=== PATIENT | female | born 1945 | race Two or more races ===

== ENCOUNTER 2016-08-09 02:40 | Inpatient (IN) | payer MEDICARE, OTHER ==
[~2016-08-09] VITALS: Ht 162.6 cm; Wt 65.3 kg
[2016-08-09 06:10] VITALS: BP 100/67
[2016-08-09] MEDS ORDERED: ENALAPRIL MALEAT5 MG ORAL (06:51)
[2016-08-09] MEDS ORDERED: FUROSEMIDE40 MG ORAL (06:51)
[2016-08-09] MEDS ORDERED: ASPIR 8181 MG ORAL (07:57)
[2016-08-09 08:00] VITALS: BP 113/63
[2016-08-09] MEDS: Aspirin Baby 81mg ORAL SCH (10:11)
[2016-08-09 10:57] LABS: BASOPHILS % (AUTO) 0.7 % (0.0-2.0); EOSINOPHILS % (AUTO) 1.5 % (0.0-3.0); LYMPHOCYTES % (AUTO) 24.1 % (20.0-45.0); MEAN CORPUSCULAR HEMOGLOBIN 29.3 PG (27.0-31.0); MEAN CORPUSCULAR HGB CONC 33.6 G/DL (32.0-36.0); MEAN CORPUSCULAR VOLUME 87 FL (80-99); MEAN PLATELET VOLUME 8.3 FL (6.5-10.1); MONOCYTES % (AUTO) 6.9 % (1.0-10.0); NEUTROPHILS % (AUTO) 66.8 % (45.0-75.0); PLATELET COUNT 191 K/UL (150-450); RED BLOOD COUNT 4.44 M/UL (4.20-5.40); RED CELL DISTRIBUTION WIDTH 11.9 % (11.6-14.8)
[2016-08-09 11:14] LABS: ALANINE AMINOTRANSFERASE 21 U/L (3-33); ALBUMIN/GLOBULIN RATIO 1.2 (1.0-2.7); ANION GAP 17 (5-15); ASPARTATE AMINO TRANSFERASE 31 U/L (5-40); CALCIUM 9.1 mg/dL (8.6-10.2); CARBON DIOXIDE 24 mEQ/L (20-30); CHLORIDE 97 mEQ/L (98-107); CHOLESTEROL 201 mg/dL (< 200); CHOLESTEROL/HDL RATIO 3.5 (3.3-4.4); CREATININE 0.8 mg/dL (0.5-0.9); GLOMERULAR FILTRATION RATE > 60 mL/min (>60); HEMOLYSIS 3; LDL CHOLESTEROL (CALC.) 126 mg/dL (60-99); MAGNESIUM 1.8 mg/dL (1.7-2.5); PHOSPHORUS 3.9 mg/dL (2.5-4.8); POTASSIUM 3.5 mEQ/L (3.4-4.9); SODIUM 138 mEQ/L (135-145); TOTAL PROTEIN 7.1 g/dL (6.6-8.7); TROPONIN I < 0.30 ng/mL (<=0.30)
--- NOTE | 2016-08-09 11:44 | History & Physical ---
History and Physical History & Physicial Dictated for Int Med-Dr Pond no. [id number]. ISABELLE DHILLON Aug 09, 2016 11:44
[2016-08-09 12:00] VITALS: BP 96/59
[2016-08-09] MEDS: Heparin 5000 units/ml inj SUBQ SCH ×2 (13:27→21:34)
--- NOTE | 2016-08-09 14:32 | Cardiac Electrophysiology PN ---
Subjective Subjective [id number]. CHF EF 20%, LBBB Objective Last 24 Hour Vital Signs Date Time Temp Pulse Resp B/P Pulse Ox O2 Delivery O2 Flow Rate FiO2 08/09/16 12:00 67 08/09/16 12:00 97.5 73 20 96/59 98 Room Air 08/09/16 08:00 67 08/09/16 08:00 97.7 68 20 113/63 99 Room Air 08/09/16 06:10 96.6 96 18 100/67 99 Room Air Laboratory Tests Test 08/09/16 10:46 White Blood Count 5.0 K/UL (4.8-10.8) Red Blood Count 4.44 M/UL (4.20-5.40) Hemoglobin 13.0 G/DL (12.0-16.0) Hematocrit 38.6 % (37.0-47.0) Mean Corpuscular Volume 87 FL (80-99) Mean Corpuscular Hemoglobin 29.3 PG (27.0-31.0) Mean Corpuscular Hemoglobin Concent 33.6 G/DL (32.0-36.0) Red Cell Distribution Width 11.9 % (11.6-14.8) Platelet Count 191 K/UL (150-450) Mean Platelet Volume 8.3 FL (6.5-10.1) Neutrophils (%) (Auto) 66.8 % (45.0-75.0) Lymphocytes (%) (Auto) 24.1 % (20.0-45.0) Monocytes (%) (Auto) 6.9 % (1.0-10.0) Eosinophils (%) (Auto) 1.5 % (0.0-3.0) Basophils (%) (Auto) 0.7 % (0.0-2.0) Sodium Level 138 mEQ/L (135-145) Potassium Level 3.5 mEQ/L (3.4-4.9) Chloride Level 97 mEQ/L (98-107) L Carbon Dioxide Level 24 mEQ/L (20-30) Anion Gap 17 (5-15) H Blood Urea Nitrogen 12 mg/dL (7-23) Creatinine 0.8 mg/dL (0.5-0.9) Estimat Glomerular Filtration Rate > 60 mL/min (>60) Glucose Level 195 mg/dL (74-106) H Calcium Level 9.1 mg/dL (8.6-10.2) Phosphorus Level 3.9 mg/dL (2.5-4.8) Magnesium Level 1.8 mg/dL (1.7-2.5) Total Bilirubin 0.7 mg/dL (0.0-1.2) Aspartate Amino Transf (AST/SGOT) 31 U/L (5-40) Alanine Aminotransferase (ALT/SGPT) 21 U/L (3-33) Alkaline Phosphatase 86 U/L (35-104) Troponin I < 0.30 ng/mL (<=0.30) Pro-B-Type Natriuretic Peptide 7043 pg/mL (0-125) H Total Protein 7.1 g/dL (6.6-8.7) Albumin 4.0 g/dL (3.5-5.2) Globulin 3.1 g/dL Albumin/Globulin Ratio 1.2 (1.0-2.7) Triglycerides Level 87 mg/dL (< 150) Cholesterol Level 201 mg/dL (< 200) H LDL Cholesterol 126 mg/dL (60-99) H HDL Cholesterol 58 mg/dL (> 60) Cholesterol/HDL Ratio 3.5 (3.3-4.4) JOSE ALFREDO PERDOMO Aug 09, 2016 14:32
--- NOTE | 2016-08-09 15:30 | Consultation ---
History of Present Illness General Date patient seen: Aug 09, 2016 Referring physician: Dr. Pond Reason for Consultation: dyspnea Present Illness HPI 70 year old female with hx of CHF, EF of 23%, was taken to [facility] with CC of Shortness of breath and cough, she was diagnosed to have acute exacerbation of CHF, treated with lasix and transferred to [place] for further work up. she is sitting up now, in no distress. The daughter is at the bed site helping with taking history. Allergies: Coded Allergies: No Known Allergies (Unverified , 08/09/16) Medication History Scheduled Aspirin* (Aspir 81*), 81 MG ORAL DAILY, (Reported) Enalapril Maleate* (Enalapril Maleate*), 5 MG ORAL DAILY, (Reported) Furosemide* (Lasix*), 40 MG ORAL TWICE A DAY, (Reported) Patient History Healthcare decision maker pt alert and oriented Resuscitation status Advanced Directive on File Past Medical/Surgical History Past Medical/Surgical History: (1) Cardiomyopathy Review of Systems All Other Systems: negative except mentioned in HPI Physical Exam General Appearance: WD/WN Lines, tubes and drains: peripheral, central line HEENT: normocephalic, atraumatic Neck: non-tender, normal alignment Respiratory/Chest: chest wall non-tender, lungs clear Cardiovascular/Chest: normal peripheral pulses, normal rate Abdomen: normal bowel sounds, non tender Genitourinary/Rectal: normal genital exam Last 24 Hour Vital Signs Date Time Temp Pulse Resp B/P Pulse Ox O2 Delivery O2 Flow Rate FiO2 08/09/16 12:00 67 08/09/16 12:00 97.5 73 20 96/59 98 Room Air 08/09/16 08:00 67 08/09/16 08:00 97.7 68 20 113/63 99 Room Air 08/09/16 06:10 96.6 96 18 100/67 99 Room Air Laboratory Tests Test 08/09/16 10:46 White Blood Count 5.0 K/UL (4.8-10.8) Red Blood Count 4.44 M/UL (4.20-5.40) Hemoglobin 13.0 G/DL (12.0-16.0) Hematocrit 38.6 % (37.0-47.0) Mean Corpuscular Volume 87 FL (80-99) Mean Corpuscular Hemoglobin 29.3 PG (27.0-31.0) Mean Corpuscular Hemoglobin Concent 33.6 G/DL (32.0-36.0) Red Cell Distribution Width 11.9 % (11.6-14.8) Platelet Count 191 K/UL (150-450) Mean Platelet Volume 8.3 FL (6.5-10.1) Neutrophils (%) (Auto) 66.8 % (45.0-75.0) Lymphocytes (%) (Auto) 24.1 % (20.0-45.0) Monocytes (%) (Auto) 6.9 % (1.0-10.0) Eosinophils (%) (Auto) 1.5 % (0.0-3.0) Basophils (%) (Auto) 0.7 % (0.0-2.0) Sodium Level 138 mEQ/L (135-145) Potassium Level 3.5 mEQ/L (3.4-4.9) Chloride Level 97 mEQ/L (98-107) L Carbon Dioxide Level 24 mEQ/L (20-30) Anion Gap 17 (5-15) H Blood Urea Nitrogen 12 mg/dL (7-23) Creatinine 0.8 mg/dL (0.5-0.9) Estimat Glomerular Filtration Rate > 60 mL/min (>60) Glucose Level 195 mg/dL (74-106) H Calcium Level 9.1 mg/dL (8.6-10.2) Phosphorus Level 3.9 mg/dL (2.5-4.8) Magnesium Level 1.8 mg/dL (1.7-2.5) Total Bilirubin 0.7 mg/dL (0.0-1.2) Aspartate Amino Transf (AST/SGOT) 31 U/L (5-40) Alanine Aminotransferase (ALT/SGPT) 21 U/L (3-33) Alkaline Phosphatase 86 U/L (35-104) Troponin I < 0.30 ng/mL (<=0.30) Pro-B-Type Natriuretic Peptide 7043 pg/mL (0-125) H Total Protein 7.1 g/dL (6.6-8.7) Albumin 4.0 g/dL (3.5-5.2) Globulin 3.1 g/dL Albumin/Globulin Ratio 1.2 (1.0-2.7) Triglycerides Level 87 mg/dL (< 150) Cholesterol Level 201 mg/dL (< 200) H LDL Cholesterol 126 mg/dL (60-99) H HDL Cholesterol 58 mg/dL (> 60) Cholesterol/HDL Ratio 3.5 (3.3-4.4) Height (Feet): 5 Height (Inches): 4.00 Weight (Pounds): 139 Medications Current Medications Medications (Trade) Dose Ordered Sig/Roselia Route PRN Reason Start Time Stop Time Status Last Admin Dose Admin Aspirin (ASA) 81 mg DAILY ORAL 08/09/16 10:00 09/08/16 09:59 08/09/16 10:11 Carvedilol (Coreg) 3.125 mg EVERY 12 HOURS ORAL 08/09/16 21:00 09/08/16 20:59 Dextrose (Dextrose 50%) STAT PRN IV Hypoglycemia 08/09/16 09:45 09/08/16 09:44 Furosemide (Lasix) 40 mg BID IV 08/09/16 18:00 09/08/16 17:59 Heparin Sodium (Porcine) (Heparin 5000 units/ml) 5,000 units EVERY 8 HOURS SUBQ 08/09/16 14:00 09/08/16 13:59 08/09/16 13:27 Lisinopril (Zestril) 2.5 mg DAILY ORAL 08/10/16 09:00 09/09/16 08:59 Potassium Chloride (K-Dur) 40 meq TWICE A DAY ORAL 08/09/16 18:00 09/08/16 17:59 Spironolactone (Aldactone) 25 mg DAILY ORAL 08/10/16 09:00 09/09/16 08:59 Assessment/Plan Problem List: (1) CHF exacerbation ICD Codes: I50.9 - Heart failure, unspecified SNOMED: 77426926 (2) Cardiomyopathy ICD Codes: I42.9 - Cardiomyopathy, unspecified SNOMED: 54738966 Assessment/Plan check CXr echo diuretics respiratory treatment titrate fio2 to sat of 92% ELLI FUENTES Aug 09, 2016 15:30
[2016-08-09 16:00] VITALS: BP 129/83
--- NOTE | 2016-08-09 16:38 | History and Physical Report ---
DATE OF ADMISSION: 08/09/2016 CHIEF COMPLAINT: The patient is a 70-year-old female, who presents with complaint of fatigue and chest pain. HISTORY OF PRESENT ILLNESS: The patient states she was diagnosed with congestive heart failure in 04/2016 in [facility]. The patient states her ejection fraction is about 23%. The patient has not seen a family support worker since returning to the [facility]. The patient states she had cough since April. The patient was seen by her primary care physician. The patient was told she had bronchitis. The patient states that she has cough since April. The patient states that yesterday, 08/08/2016, she began to experience chest pain. Chest pain is left-sided. It does not radiate to the jaw or to the left shoulder. It does radiate to the back. The patient also states she was fatigued. The patient is unable to walk without feeling fatigued. The patient presented to [place]. The patient was found to have BNP elevated over 7000. The patient was transferred to [facility] for insurance purposes. The patient was admitted for congestive heart failure. REVIEW OF SYSTEMS: Constitutional: The patient denies weight loss or weight gain. The patient denies fever or chills. HEENT: The patient denies ear or throat pain. The patient denies headache. Cardiovascular: The patient complains of chest pain as above. The patient denies palpitations. Chest: The patient denies wheeze or shortness of breath. Abdominal: The patient denies nausea, vomiting, or constipation. Genitourinary: The patient denies dysuria or increased frequency of urination. Neuromuscular: The patient complains of generalized fatigue as above. The patient denies seizures. PAST MEDICAL HISTORY: Significant for congestive heart failure as above. PAST SURGICAL HISTORY: Significant for bilateral tubal ligation. CURRENT MEDICATIONS: 1. Enalapril 20 mg one-quarter tablet daily. 2. Aspirin 81 mg one tablet p.o. daily. 3. Lasix 40 mg one tablet p.o. twice daily. ALLERGIES: No known drug allergies. SOCIAL HISTORY: The patient is and her is at the bedside. The patient denies tobacco use. The patient admits to rare alcohol use. The patient is unemployed. PHYSICAL EXAMINATION: VITAL SIGNS: Temperature 96.6, respirations 18, pulse 96, blood pressure 100/67. GENERAL: The patient is a well-developed, well-nourished, female, in no apparent distress. HEENT: Eyes, pupils are equal and responsive to light and accommodation. Extraocular movements are intact. NECK: Supple. No lymphadenopathy. CHEST: Lungs are clear to auscultation bilaterally without wheezes or rales. CARDIOVASCULAR: Regular rhythm and rate. S1, S2. No murmurs, rubs, or gallops. ABDOMEN: Soft, nontender, and nondistended. Positive bowel sounds. No evidence of hepatosplenomegaly. Currently, no rebound or guarding. EXTREMITIES: No clubbing, cyanosis, or edema. RECTAL: Refused. GENITAL: Refused. NEUROLOGIC: Cranial nerves II through XII are grossly intact without focal deficits. Motor strength is 5/5 bilaterally. Deep tendon reflexes are 2+ plantar. LABORATORY STUDIES: WBC 5.2, hemoglobin 13.2, hematocrit 38.6, platelets 191,000. Sodium 138, potassium 3.5, chloride 97, CO2 24, BUN 12, creatinine 0.8, and glucose elevated at 195. Troponin less than 0.3. BNP 7043. Chest x-ray from [place] showed pulmonary vascular congestion consistent with congestive heart failure. An EKG from [place] showed left bundle-branch block, rate approximately 85 beats per minute with no acute ST changes or Q-waves noted. ASSESSMENT: This is a 70-year-old female with: 1. Shortness of breath. 2. Fatigue. 3. Congestive heart failure. TREATMENT: Shortness of breath/fatigue/congestive heart failure. An echocardiogram is pending. Cardiology consultation with Dr. Jv Melgar. The patient has been started empirically on intravenous Lasix. We will follow recommendation of Cardiology. Kevin Tuttle M.D. DR: Neva JOB#: [id number] CC:
--- NOTE | 2016-08-09 18:03 | Diagnostic Imaging Report ---
Indication: DYSPNEA Technique: One view of the chest Comparison: none Findings: Heart is enlarged. Lungs and pleural spaces are clear. Impression: Cardiomegaly. No acute process
--- NOTE | 2016-08-09 19:27 | Cardiology Report ---
APPROVED REPORT EXAM: Two-dimensional and M-mode echocardiogram with Doppler and color Doppler. INDICATION Left Ventricular Function M-Mode DIMENSIONS IVSd0.6 (0.7-1.1cm)Left Atrium (MM)5.4 (1.6-4.0cm) LVDd7.4 (3.5-5.6cm)Aortic Root1.8 (2.0-3.7cm) PWd0.7 (0.7-1.1cm)Aortic Cusp Exc.1.2 (1.5-2.0cm) LVDs6.7 (2.5-4.0cm) PWs1.7 cm Severe left ventricular enlargement. Severe global left ventricular hypokinesia. Left ventricular ejection fraction is estimated to be 10-15%. No evidence of ventricular hypertrophy. No evidence of pericardial fat or effusion. All other cardiac chamber sizes are within normal limits. Aortic valve calcification with decreased cusp excursion c/w aortic stenosis. Mildly thickened mitral valve leaflets with normal excursion. Mild mitral annulus and aortic root calcification. Pulmonic valve not well visualized. Normal tricuspid valve structure. IVC dilated at 2.1 cm with physiologic collapse. A color flow and spectral Doppler study was performed and revealed: Trace aortic regurgitation. Peak aortic valve gradient of 12 mmHg and a mean of 4 mmHg. Aortic valve area 1.3 cm2 calculated by continuity equation. Moderate mitral regurgitation. Mitral inflow velocities indicates restrictive LV physiology implying significant left ventricular diastolic dysfunction (Grade III). High E/E' ratio suggestive of increase in intracardiac filling pressure. Mild to moderate tricuspid regurgitation. Tricuspid systolic velocities suggests peak right ventricular systolic pressure of 44 mmHg, consistent with mild pulmonary hypertension. Mild pulmonic regurgitation present.
[2016-08-09 20:00] VITALS: BP 117/75
[2016-08-10] VITALS: BP 106/62
[2016-08-10 04:00] VITALS: BP 96/59
[2016-08-10] MEDS: Heparin 5000 units/ml inj SUBQ SCH ×3 (05:38→22:15)
[2016-08-10 08:07] VITALS: BP 105/67
--- NOTE | 2016-08-10 08:09 | Consultation ---
DATE OF CONSULTATION: 08/09/2016 CARDIOLOGY CONSULTATION: REFERRING PHYSICIAN: Zhen Pond M.D. REASON FOR CONSULTATION: Evaluation of the patient's congestive heart failure. HISTORY OF PRESENT ILLNESS: The patient is a 70-year-old lady who had no past medical history in the past, who was recently diagnosed with congestive heart failure, ejection fraction of only 23%. The patient presented with shortness of breath and productive cough about three weeks ago and was started on Lasix in April in her home country, [facility]. The patient presented to [facility] again with increasing shortness of breath. The patient had congestive heart failure with complete left bundle-branch block. The patient was transferred to [facility] as the patient was not a [place] member. The patient also had frequent PVCs. At the time of my evaluation, the patient is undergoing an echocardiogram. Denies any chest pain or shortness of breath. Her echocardiogram was on 06/22/2016 that showed EF of 23% from [facility]. PAST MEDICAL HISTORY: 1. Hypertension. 2. Severe cardiomyopathy with ejection fraction of 23% on echocardiogram. SOCIAL HISTORY: She is from [facility] and does not smoke or drink alcohol. FAMILY HISTORY: Noncontributory. REVIEW OF SYSTEMS: Performed and was negative other what was mentioned in history of present illness. PHYSICAL EXAMINATION: VITAL SIGNS: Blood pressure 96/59, pulse 72, respiration 20, and she is afebrile. HEAD AND NECK: Show positive JVD. LUNGS: Decreased breath sounds CARDIOVASCULAR: Shows regular S1 and S2 with S3 gallop. ABDOMEN: Soft. EXTREMITIES: A 1+ pitting edema. LABORATORY AND DIAGNOSTIC DATA: EKG shows sinus rhythm with complete left bundle-branch block. , hemoglobin 13, hematocrit 38.6, and platelet 191,000. Sodium 138, potassium 3.5, BUN 12, creatinine 0.8, and glucose of 194. Troponin is less than 0.3. BNP 7043. LDL is 126. ASSESSMENT AND PLAN: 1. Congestive heart failure. The previous echocardiogram, ejection fraction was 20%, she has been on heart failure since then. I would repeat the echocardiogram for confirmation. We will start the patient on low dose of Coreg, lisinopril, Aldactone, and Lasix. BNP of more than 7000. 2. Complete left bundle-branch block. 3. If patient's ejection fraction does not improve to more than 35%, therapy every three months. She would need biventricular defibrillator implantation especially in view of patient's underlying complete left bundle-branch block. Thank you very much, Dr. Pond, for allowing me to participate in the care of this patient. Please do not hesitate to contact for any questions regarding my evaluation. Jv Melgar M.D. DR: Chivo JOB#: [id number] CC:
[2016-08-10] MEDS: Aspirin Baby 81mg ORAL SCH (08:56)
[2016-08-10] MEDS: Spironolactone 25mg tab ORAL SCH (08:57)
[2016-08-10] MEDS ORDERED: Spironolactone 25mg tab ORAL SCH (09:00)
[2016-08-10] MEDS: Lisinopril 2.5mg tab ORAL SCH (09:00)
[2016-08-10] MEDS ORDERED: Lisinopril 2.5mg tab ORAL SCH (09:00)
[2016-08-10 09:23] LABS: EOSINOPHILS % (AUTO) 1.7 % (0.0-3.0); LYMPHOCYTES % (AUTO) 21.8 % (20.0-45.0); MEAN CORPUSCULAR HEMOGLOBIN 29.3 PG (27.0-31.0); MEAN CORPUSCULAR HGB CONC 33.3 G/DL (32.0-36.0); MEAN CORPUSCULAR VOLUME 88 FL (80-99); MEAN PLATELET VOLUME 6.8 FL (6.5-10.1); MONOCYTES % (AUTO) 6.8 % (1.0-10.0); NEUTROPHILS % (AUTO) 68.7 % (45.0-75.0); PLATELET COUNT 218 K/UL (150-450); RED BLOOD COUNT 4.53 M/UL (4.20-5.40); RED CELL DISTRIBUTION WIDTH 11.8 % (11.6-14.8); WHITE BLOOD COUNT 4.6 K/UL (4.8-10.8)
[2016-08-10 09:43] LABS: ANION GAP 16 (5-15); CALCIUM 9.4 mg/dL (8.6-10.2); CARBON DIOXIDE 26 mEQ/L (20-30); CHLORIDE 97 mEQ/L (98-107); CREATININE 0.9 mg/dL (0.5-0.9); GLOMERULAR FILTRATION RATE > 60 mL/min (>60); HEMOLYSIS 2; POTASSIUM 4.3 mEQ/L (3.4-4.9); SODIUM 139 mEQ/L (135-145)
[2016-08-10 09:56] LABS: TROPONIN I < 0.30 ng/mL (<=0.30)
[2016-08-10 12:09] VITALS: BP 93/58
--- NOTE | 2016-08-10 15:19 | Pulmonology Progress Note ---
Assessment/Plan Problems: (1) CHF exacerbation (2) Cardiomyopathy Assessment/Plan improving optimize cardiac meds f/u by shoaib as outpatient titrate fio2 to sat of 92%. watch intake/out Subjective ROS Limited/Unobtainable: No Interval Events: les short of breath Allergies: Coded Allergies: No Known Allergies (Unverified , 08/09/16) Objective Last 24 Hour Vital Signs Date Time Temp Pulse Resp B/P Pulse Ox O2 Delivery O2 Flow Rate FiO2 08/10/16 12:09 97.3 59 18 93/58 97 Room Air 08/10/16 12:00 57 08/10/16 09:00 105/67 08/10/16 08:58 61 105/67 08/10/16 08:07 97.7 61 18 105/67 98 Room Air 08/10/16 08:00 72 08/10/16 04:00 58 08/10/16 04:00 97.2 60 16 96/59 98 Room Air 08/10/16 00:00 97.0 65 20 106/62 97 Room Air 08/10/16 00:00 65 08/09/16 21:33 94 117/75 08/09/16 20:00 97.0 94 20 117/75 100 Room Air 08/09/16 20:00 90 08/09/16 16:00 78 08/09/16 16:00 96.8 72 20 129/83 98 Room Air Intake and Output 08/09/16 08/10/16 19:00 07:00 Intake Total 100 ml 150 ml Balance 100 ml 150 ml Intake Oral 100 ml 150 ml # Voids 2 2 General Appearance: WD/WN HEENT: normocephalic, atraumatic Respiratory/Chest: chest wall non-tender, lungs clear Breasts: no masses Cardiovascular: normal peripheral pulses Abdomen: normal bowel sounds, soft, non tender Extremities: no cyanosis Skin: no rash 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, no motor/sensory deficits Lymphatic: no neck adenopathy Laboratory Tests 08/10/16 08:35: White Blood Count 4.6L, Red Blood Count 4.53, Hemoglobin 13.2, Hematocrit 39.8, Mean Corpuscular Volume 88, Mean Corpuscular Hemoglobin 29.3, Mean Corpuscular Hemoglobin Concent 33.3, Red Cell Distribution Width 11.8, Platelet Count 218, Mean Platelet Volume 6.8, Neutrophils (%) (Auto) 68.7, Lymphocytes (%) (Auto) 21.8, Monocytes (%) (Auto) 6.8, Eosinophils (%) (Auto) 1.7, Basophils (%) (Auto ) 1.0, Sodium Level 139, Potassium Level 4.3, Chloride Level 97L, Carbon Dioxide Level 26, Anion Gap 16H, Blood Urea Nitrogen 17, Creatinine 0.9, Estimat Glomerular Filtration Rate > 60, Glucose Level 183H, Calcium Level 9.4, Troponin I < 0.30, Pro-B-Type Natriuretic Peptide 3140H Current Medications Medications (Trade) Dose Ordered Sig/Roselia Route PRN Reason Start Time Stop Time Status Last Admin Dose Admin Aspirin (ASA) 81 mg DAILY ORAL 08/09/16 10:00 09/08/16 09:59 08/10/16 08:56 Carvedilol (Coreg) 3.125 mg EVERY 12 HOURS ORAL 08/09/16 21:00 09/08/16 20:59 08/10/16 08:58 Dextrose (Dextrose 50%) STAT PRN IV Hypoglycemia 08/09/16 09:45 09/08/16 09:44 Furosemide (Lasix) 40 mg BID IV 08/09/16 18:00 09/08/16 17:59 08/10/16 08:57 Heparin Sodium (Porcine) (Heparin 5000 units/ml) 5,000 units EVERY 8 HOURS SUBQ 08/09/16 14:00 09/08/16 13:59 08/10/16 14:33 Lisinopril (Zestril) 2.5 mg DAILY ORAL 08/10/16 09:00 09/09/16 08:59 08/10/16 09:00 Potassium Chloride (K-Dur) 40 meq TWICE A DAY ORAL 08/09/16 18:00 09/08/16 17:59 08/10/16 08:58 Spironolactone (Aldactone) 25 mg DAILY ORAL 08/10/16 09:00 09/09/16 08:59 08/10/16 08:57 ELLI FUENTES Aug 10, 2016 15:19
--- NOTE | 2016-08-10 15:24 | Internal Med Progress Note ---
Subjective Date of Service: Aug 10, 2016 Physician Name Kevin Dhillon Attending Physician Zhen Pond MD Current Medications Medications (Trade) Dose Ordered Sig/Roselia Route PRN Reason Start Time Stop Time Status Last Admin Dose Admin Aspirin (ASA) 81 mg DAILY ORAL 08/09/16 10:00 09/08/16 09:59 08/10/16 08:56 Carvedilol (Coreg) 3.125 mg EVERY 12 HOURS ORAL 08/09/16 21:00 09/08/16 20:59 08/10/16 08:58 Dextrose (Dextrose 50%) STAT PRN IV Hypoglycemia 08/09/16 09:45 09/08/16 09:44 Furosemide (Lasix) 40 mg BID IV 08/09/16 18:00 09/08/16 17:59 08/10/16 08:57 Heparin Sodium (Porcine) (Heparin 5000 units/ml) 5,000 units EVERY 8 HOURS SUBQ 08/09/16 14:00 09/08/16 13:59 08/10/16 14:33 Lisinopril (Zestril) 2.5 mg DAILY ORAL 08/10/16 09:00 09/09/16 08:59 08/10/16 09:00 Potassium Chloride (K-Dur) 40 meq TWICE A DAY ORAL 08/09/16 18:00 09/08/16 17:59 08/10/16 08:58 Spironolactone (Aldactone) 25 mg DAILY ORAL 08/10/16 09:00 09/09/16 08:59 08/10/16 08:57 Allergies: Coded Allergies: No Known Allergies (Unverified , 08/09/16) ROS Limited/Unobtainable: No Constitutional: Reports: no symptoms HEENT: Reports: no symptoms Cardiovascular: Reports: no symptoms Respiratory: Reports: shortness of breath Gastrointestinal/Abdominal: Reports: no symptoms Genitourinary: Reports: no symptoms Neurologic/Psychiatric: Reports: weakness Subjective 70 YO F admitted with shortness of breath. Now congestive heart failure. Cover for Int Med-Dr Pond. Objective Last Vital Signs Date Time Temp Pulse Resp B/P Pulse Ox O2 Delivery O2 Flow Rate FiO2 08/10/16 12:09 97.3 59 18 93/58 97 Room Air General Appearance: WD/WN, alert, mild distress EENT: PERRL/EOMI, normal ENT inspection, TMs normal Neck: non-tender, normal alignment, supple Cardiovascular: normal peripheral pulses, normal rate, regular rhythm, no gallop/murmur, no JVD Respiratory/Chest: chest wall non-tender, crackles/rales, rhonchi - bilaterally , expiratory wheezing Abdomen: normal bowel sounds, non tender, soft, no organomegaly, no mass Extremities: normal range of motion Neurologic: translator II-XII grossly normal Skin: normal pigmentation, warm/dry Laboratory Tests Test 08/10/16 08:35 White Blood Count 4.6 K/UL (4.8-10.8) L Red Blood Count 4.53 M/UL (4.20-5.40) Hemoglobin 13.2 G/DL (12.0-16.0) Hematocrit 39.8 % (37.0-47.0) Mean Corpuscular Volume 88 FL (80-99) Mean Corpuscular Hemoglobin 29.3 PG (27.0-31.0) Mean Corpuscular Hemoglobin Concent 33.3 G/DL (32.0-36.0) Red Cell Distribution Width 11.8 % (11.6-14.8) Platelet Count 218 K/UL (150-450) Mean Platelet Volume 6.8 FL (6.5-10.1) Neutrophils (%) (Auto) 68.7 % (45.0-75.0) Lymphocytes (%) (Auto) 21.8 % (20.0-45.0) Monocytes (%) (Auto) 6.8 % (1.0-10.0) Eosinophils (%) (Auto) 1.7 % (0.0-3.0) Basophils (%) (Auto) 1.0 % (0.0-2.0) Sodium Level 139 mEQ/L (135-145) Potassium Level 4.3 mEQ/L (3.4-4.9) Chloride Level 97 mEQ/L (98-107) L Carbon Dioxide Level 26 mEQ/L (20-30) Anion Gap 16 (5-15) H Blood Urea Nitrogen 17 mg/dL (7-23) Creatinine 0.9 mg/dL (0.5-0.9) Estimat Glomerular Filtration Rate > 60 mL/min (>60) Glucose Level 183 mg/dL (74-106) H Calcium Level 9.4 mg/dL (8.6-10.2) Troponin I < 0.30 ng/mL (<=0.30) Pro-B-Type Natriuretic Peptide 3140 pg/mL (0-125) H Intake and Output 08/09/16 08/10/16 19:00 07:00 Intake Total 100 ml 150 ml Balance 100 ml 150 ml Intake Oral 100 ml 150 ml # Voids 2 2 Assessment/Plan Problem List: (1) Congestive heart failure (CHF) Assessment & Plan: LVEF 10-15%. May require AICD. Follow cardiology recs. (2) Shortness of breath Assessment & Plan: Due to CHF. See cariology note. Cont IV lasix (3) Fatigue Assessment & Plan: Due to CHF Status: progressing KEVIN DHILLON Aug 10, 2016 15:24
--- NOTE | 2016-08-10 15:34 | Cardiac Electrophysiology PN ---
Assessment/Plan Status Narrative Severe left ventricular enlargement. Severe global left ventricular hypokinesia. Left ventricular ejection fraction is estimated to be 10-15%. No evidence of ventricular hypertrophy. No evidence of pericardial fat or effusion. All other cardiac chamber sizes are within normal limits. Aortic valve calcification with decreased cusp excursion c/w aortic stenosis. Mildly thickened mitral valve leaflets with normal excursion. Mild mitral annulus and aortic root calcification. Pulmonic valve not well visualized. Normal tricuspid valve structure. IVC dilated at 2.1 cm with physiologic collapse. Assessment/Plan 1. Congestive heart failure. Ejection fraction was 20% last month and still 10- 15%.,Continue Coreg, lisinopril, Aldactone, and Lasix. BNP of more than 7000. Likely nonischemic cardiomyopathy.Will schedule for Life vest and nuclear stress test. Likely needs cardiac cath. If EF does not improve to more than 35% in 2 months, would need BIV ICD implant. 2. Complete left bundle-branch block. 3. Moderate MR DW Daughter and Dr Pond and RN Subjective Subjective Feeling better. No chest pain. SOB better. Objective Last 24 Hour Vital Signs Date Time Temp Pulse Resp B/P Pulse Ox O2 Delivery O2 Flow Rate FiO2 08/10/16 12:09 97.3 59 18 93/58 97 Room Air 08/10/16 12:00 57 08/10/16 09:00 105/67 08/10/16 08:58 61 105/67 08/10/16 08:07 97.7 61 18 105/67 98 Room Air 08/10/16 08:00 72 08/10/16 04:00 58 08/10/16 04:00 97.2 60 16 96/59 98 Room Air 08/10/16 00:00 97.0 65 20 106/62 97 Room Air 08/10/16 00:00 65 08/09/16 21:33 94 117/75 08/09/16 20:00 97.0 94 20 117/75 100 Room Air 08/09/16 20:00 90 08/09/16 16:00 78 08/09/16 16:00 96.8 72 20 129/83 98 Room Air Intake and Output 08/09/16 08/10/16 19:00 07:00 Intake Total 100 ml 150 ml Balance 100 ml 150 ml Intake Oral 100 ml 150 ml # Voids 2 2 Laboratory Tests Test 08/10/16 08:35 White Blood Count 4.6 K/UL (4.8-10.8) L Red Blood Count 4.53 M/UL (4.20-5.40) Hemoglobin 13.2 G/DL (12.0-16.0) Hematocrit 39.8 % (37.0-47.0) Mean Corpuscular Volume 88 FL (80-99) Mean Corpuscular Hemoglobin 29.3 PG (27.0-31.0) Mean Corpuscular Hemoglobin Concent 33.3 G/DL (32.0-36.0) Red Cell Distribution Width 11.8 % (11.6-14.8) Platelet Count 218 K/UL (150-450) Mean Platelet Volume 6.8 FL (6.5-10.1) Neutrophils (%) (Auto) 68.7 % (45.0-75.0) Lymphocytes (%) (Auto) 21.8 % (20.0-45.0) Monocytes (%) (Auto) 6.8 % (1.0-10.0) Eosinophils (%) (Auto) 1.7 % (0.0-3.0) Basophils (%) (Auto) 1.0 % (0.0-2.0) Sodium Level 139 mEQ/L (135-145) Potassium Level 4.3 mEQ/L (3.4-4.9) Chloride Level 97 mEQ/L (98-107) L Carbon Dioxide Level 26 mEQ/L (20-30) Anion Gap 16 (5-15) H Blood Urea Nitrogen 17 mg/dL (7-23) Creatinine 0.9 mg/dL (0.5-0.9) Estimat Glomerular Filtration Rate > 60 mL/min (>60) Glucose Level 183 mg/dL (74-106) H Calcium Level 9.4 mg/dL (8.6-10.2) Troponin I < 0.30 ng/mL (<=0.30) Pro-B-Type Natriuretic Peptide 3140 pg/mL (0-125) H Objective HEAD AND NECK: Show positive JVD. LUNGS: Decreased breath sounds CARDIOVASCULAR: Shows regular S1 and S2 with S3 gallop. ABDOMEN: Soft. EXTREMITIES: A 1+ pitting edema. JOSE ALFREDO PERDOMO Aug 10, 2016 15:34
[2016-08-10 16:00] VITALS: BP 80/40
[2016-08-10 20:00] VITALS: BP 91/55
[2016-08-11 00:19] VITALS: BP 103/69
[2016-08-11 04:25] VITALS: BP 100/54
[2016-08-11] MEDS: Heparin 5000 units/ml inj SUBQ SCH ×3 (06:10→21:04)
[2016-08-11 07:07] LABS: TROPONIN I < 0.30 ng/mL (<=0.30)
[2016-08-11 07:08] LABS: ANION GAP 13 (5-15); CALCIUM 9.4 mg/dL (8.6-10.2); CARBON DIOXIDE 25 mEQ/L (20-30); CHLORIDE 100 mEQ/L (98-107); CREATININE 0.9 mg/dL (0.5-0.9); GLOMERULAR FILTRATION RATE > 60 mL/min (>60); HEMOLYSIS 32; SODIUM 138 mEQ/L (135-145)
[2016-08-11 07:23] LABS: BASOPHILS % (AUTO) 1.2 % (0.0-2.0); EOSINOPHILS % (AUTO) 2.6 % (0.0-3.0); MEAN CORPUSCULAR HEMOGLOBIN 29.5 PG (27.0-31.0); MEAN CORPUSCULAR HGB CONC 33.5 G/DL (32.0-36.0); MEAN CORPUSCULAR VOLUME 88 FL (80-99); MEAN PLATELET VOLUME 6.8 FL (6.5-10.1); MONOCYTES % (AUTO) 9.6 % (1.0-10.0); NEUTROPHILS % (AUTO) 59.6 % (45.0-75.0); PLATELET COUNT 206 K/UL (150-450); RED BLOOD COUNT 4.65 M/UL (4.20-5.40); WHITE BLOOD COUNT 4.4 K/UL (4.8-10.8)
[2016-08-11 08:00] VITALS: BP 102/67
[2016-08-11] MEDS: Spironolactone 25mg tab ORAL SCH (09:00)
[2016-08-11] MEDS: Lisinopril 2.5mg tab ORAL SCH (09:00)
[2016-08-11] MEDS: Aspirin Baby 81mg ORAL SCH (09:17)
[2016-08-11] MEDS ORDERED: Adenosine Inj IVP ONE (11:15)
--- NOTE | 2016-08-11 11:48 | Internal Med Progress Note ---
Subjective Date of Service: Aug 11, 2016 Physician Name Isabelle Dhillon Attending Physician Zhen Pond MD Current Medications Medications (Trade) Dose Ordered Sig/Roselia Route PRN Reason Start Time Stop Time Status Last Admin Dose Admin Aspirin (ASA) 81 mg DAILY ORAL 08/09/16 10:00 09/08/16 09:59 08/11/16 09:17 Carvedilol (Coreg) 3.125 mg EVERY 12 HOURS ORAL 08/09/16 21:00 09/08/16 20:59 08/10/16 08:58 Dextrose (Dextrose 50%) STAT PRN IV Hypoglycemia 08/09/16 09:45 09/08/16 09:44 Furosemide (Lasix) 40 mg DAILY IV 08/11/16 09:00 09/10/16 08:59 Heparin Sodium (Porcine) (Heparin 5000 units/ml) 5,000 units EVERY 8 HOURS SUBQ 08/09/16 14:00 09/08/16 13:59 08/11/16 06:10 Lisinopril (Zestril) 2.5 mg DAILY ORAL 08/10/16 09:00 09/09/16 08:59 08/10/16 09:00 Potassium Chloride (K-Dur) 40 meq TWICE A DAY ORAL 08/09/16 18:00 09/08/16 17:59 08/10/16 17:17 Spironolactone (Aldactone) 25 mg DAILY ORAL 08/10/16 09:00 09/09/16 08:59 08/10/16 08:57 Allergies: Coded Allergies: No Known Allergies (Unverified , 08/09/16) ROS Limited/Unobtainable: No Constitutional: Reports: no symptoms HEENT: Reports: no symptoms Cardiovascular: Reports: no symptoms Respiratory: Reports: shortness of breath Gastrointestinal/Abdominal: Reports: no symptoms Genitourinary: Reports: no symptoms Neurologic/Psychiatric: Reports: no symptoms Subjective 70 YO F admitted with shortness of breath. Now congestive heart failure. Await cardiac stress test today, 08/11/16. Cover for Aldo Lara-Dr Pond. Objective Last Vital Signs Date Time Temp Pulse Resp B/P Pulse Ox O2 Delivery O2 Flow Rate FiO2 08/11/16 08:00 60 08/11/16 08:00 97.0 20 102/67 99 Room Air Laboratory Tests Test 08/11/16 04:35 White Blood Count 4.4 K/UL (4.8-10.8) L Red Blood Count 4.65 M/UL (4.20-5.40) Hemoglobin 13.7 G/DL (12.0-16.0) Hematocrit 40.8 % (37.0-47.0) Mean Corpuscular Volume 88 FL (80-99) Mean Corpuscular Hemoglobin 29.5 PG (27.0-31.0) Mean Corpuscular Hemoglobin Concent 33.5 G/DL (32.0-36.0) Red Cell Distribution Width 12.0 % (11.6-14.8) Platelet Count 206 K/UL (150-450) Mean Platelet Volume 6.8 FL (6.5-10.1) Neutrophils (%) (Auto) 59.6 % (45.0-75.0) Lymphocytes (%) (Auto) 27.0 % (20.0-45.0) Monocytes (%) (Auto) 9.6 % (1.0-10.0) Eosinophils (%) (Auto) 2.6 % (0.0-3.0) Basophils (%) (Auto) 1.2 % (0.0-2.0) Sodium Level 138 mEQ/L (135-145) Potassium Level 5.0 mEQ/L (3.4-4.9) H Chloride Level 100 mEQ/L (98-107) Carbon Dioxide Level 25 mEQ/L (20-30) Anion Gap 13 (5-15) Blood Urea Nitrogen 21 mg/dL (7-23) Creatinine 0.9 mg/dL (0.5-0.9) Estimat Glomerular Filtration Rate > 60 mL/min (>60) Glucose Level 94 mg/dL (74-106) Calcium Level 9.4 mg/dL (8.6-10.2) Troponin I < 0.30 ng/mL (<=0.30) Pro-B-Type Natriuretic Peptide 1955 pg/mL (0-125) H Intake and Output 08/10/16 08/11/16 19:00 07:00 Intake Total 840 ml 260 ml Balance 840 ml 260 ml Intake Oral 840 ml 260 ml # Voids 3 1 Assessment/Plan Problem List: (1) Congestive heart failure (CHF) Assessment & Plan: LVEF 10-15%. May require AICD. Cardiac stress test today, Wed., 08/11/16. Will require life vest until biventricular AICD can be implanted. Follow cardiology recs. (2) Shortness of breath Assessment & Plan: Due to CHF. See cariology note. Cont IV lasix (3) Fatigue Assessment & Plan: Due to CHF Status: progressing Assessment/Plan Discharge planning after cardiac stress test results and life vest are available. ISABELLE DHILLON Aug 11, 2016 11:48
--- NOTE | 2016-08-11 11:52 | Cardiac Electrophysiology PN ---
Assessment/Plan Status Narrative Severe left ventricular enlargement. Severe global left ventricular hypokinesia. Left ventricular ejection fraction is estimated to be 10-15%. No evidence of ventricular hypertrophy. No evidence of pericardial fat or effusion. All other cardiac chamber sizes are within normal limits. Aortic valve calcification with decreased cusp excursion c/w aortic stenosis. Mildly thickened mitral valve leaflets with normal excursion. Mild mitral annulus and aortic root calcification. Pulmonic valve not well visualized. Normal tricuspid valve structure. IVC dilated at 2.1 cm with physiologic collapse. Assessment/Plan 1. Congestive heart failure. Ejection fraction was 20% last month and still 10- 15% with BNP of more than 7000.Continue Coreg, lisinopril, Aldactone, and Lasix. Likely nonischemic cardiomyopathy. Life vest and nuclear stress test pending today. Likely needs cardiac cath. If EF does not improve to more than 35 % in 2 months, would need BIV ICD implant. 2. Complete left bundle-branch block. 3. Moderate MR DW Daughter and RN Subjective Subjective Feeling better. No chest pain. Scheduled for nuclear stress test and Life Vest placement.Daughter at bedside. Objective Last 24 Hour Vital Signs Date Time Temp Pulse Resp B/P Pulse Ox O2 Delivery O2 Flow Rate FiO2 08/11/16 08:00 60 08/11/16 08:00 97.0 69 20 102/67 99 Room Air 08/11/16 04:25 98.3 58 18 100/54 98 Room Air 08/11/16 04:00 55 08/11/16 00:19 98.5 67 19 103/69 97 Room Air 08/11/16 00:00 56 08/10/16 22:05 66 91/55 08/10/16 20:00 64 08/10/16 20:00 97.6 66 20 91/55 99 Room Air 08/10/16 16:00 66 08/10/16 16:00 97.0 65 21 80/40 96 Room Air 08/10/16 12:09 97.3 59 18 93/58 97 Room Air 08/10/16 12:00 57 Intake and Output 08/10/16 08/11/16 19:00 07:00 Intake Total 840 ml 260 ml Balance 840 ml 260 ml Intake Oral 840 ml 260 ml # Voids 3 1 Laboratory Tests Test 08/11/16 04:35 White Blood Count 4.4 K/UL (4.8-10.8) L Red Blood Count 4.65 M/UL (4.20-5.40) Hemoglobin 13.7 G/DL (12.0-16.0) Hematocrit 40.8 % (37.0-47.0) Mean Corpuscular Volume 88 FL (80-99) Mean Corpuscular Hemoglobin 29.5 PG (27.0-31.0) Mean Corpuscular Hemoglobin Concent 33.5 G/DL (32.0-36.0) Red Cell Distribution Width 12.0 % (11.6-14.8) Platelet Count 206 K/UL (150-450) Mean Platelet Volume 6.8 FL (6.5-10.1) Neutrophils (%) (Auto) 59.6 % (45.0-75.0) Lymphocytes (%) (Auto) 27.0 % (20.0-45.0) Monocytes (%) (Auto) 9.6 % (1.0-10.0) Eosinophils (%) (Auto) 2.6 % (0.0-3.0) Basophils (%) (Auto) 1.2 % (0.0-2.0) Sodium Level 138 mEQ/L (135-145) Potassium Level 5.0 mEQ/L (3.4-4.9) H Chloride Level 100 mEQ/L (98-107) Carbon Dioxide Level 25 mEQ/L (20-30) Anion Gap 13 (5-15) Blood Urea Nitrogen 21 mg/dL (7-23) Creatinine 0.9 mg/dL (0.5-0.9) Estimat Glomerular Filtration Rate > 60 mL/min (>60) Glucose Level 94 mg/dL (74-106) Calcium Level 9.4 mg/dL (8.6-10.2) Troponin I < 0.30 ng/mL (<=0.30) Pro-B-Type Natriuretic Peptide 1955 pg/mL (0-125) H Objective HEAD AND NECK: Mild JVD. LUNGS: Decreased breath sounds CARDIOVASCULAR: Shows regular S1 and S2 with S3 gallop. ABDOMEN: Soft. EXTREMITIES: No pitting edema. JOSE ALFREDO PERDOMO Aug 11, 2016 11:52
[2016-08-11 12:00] VITALS: BP 101/65
--- NOTE | 2016-08-11 12:49 | Pulmonology Progress Note ---
Assessment/Plan Problems: (1) CHF exacerbation (2) Cardiomyopathy Assessment/Plan improving optimize cardiac meds f/u by cadio titrate fio2 to sat of 92%. stress study and LIfe west pending watch intake/out Subjective ROS Limited/Unobtainable: No Interval Events: no new complains, strees test pending Allergies: Coded Allergies: No Known Allergies (Unverified , 08/09/16) Objective Last 24 Hour Vital Signs Date Time Temp Pulse Resp B/P Pulse Ox O2 Delivery O2 Flow Rate FiO2 08/11/16 12:00 97.0 66 20 101/65 99 Room Air 08/11/16 08:00 60 08/11/16 08:00 97.0 69 20 102/67 99 Room Air 08/11/16 04:25 98.3 58 18 100/54 98 Room Air 08/11/16 04:00 55 08/11/16 00:19 98.5 67 19 103/69 97 Room Air 08/11/16 00:00 56 08/10/16 22:05 66 91/55 08/10/16 20:00 64 08/10/16 20:00 97.6 66 20 91/55 99 Room Air 08/10/16 16:00 66 08/10/16 16:00 97.0 65 21 80/40 96 Room Air Intake and Output 08/10/16 08/11/16 19:00 07:00 Intake Total 840 ml 260 ml Balance 840 ml 260 ml Intake Oral 840 ml 260 ml # Voids 3 1 General Appearance: WD/WN HEENT: normocephalic, atraumatic Respiratory/Chest: chest wall non-tender, lungs clear Cardiovascular: regular rhythm Abdomen: normal bowel sounds, soft, non tender Genitourinary: normal external genitalia Extremities: no cyanosis, no clubbing Skin: no ulcers Laboratory Tests 08/11/16 04:35: White Blood Count 4.4L, Red Blood Count 4.65, Hemoglobin 13.7, Hematocrit 40.8, Mean Corpuscular Volume 88, Mean Corpuscular Hemoglobin 29.5, Mean Corpuscular Hemoglobin Concent 33.5, Red Cell Distribution Width 12.0, Platelet Count 206, Mean Platelet Volume 6.8, Neutrophils (%) (Auto) 59.6, Lymphocytes (%) (Auto) 27.0, Monocytes (%) (Auto) 9.6, Eosinophils (%) (Auto) 2.6, Basophils (%) (Auto ) 1.2, Sodium Level 138, Potassium Level 5.0H, Chloride Level 100, Carbon Dioxide Level 25, Anion Gap 13, Blood Urea Nitrogen 21, Creatinine 0.9, Estimat Glomerular Filtration Rate > 60, Glucose Level 94, Calcium Level 9.4, Troponin I < 0.30, Pro-B-Type Natriuretic Peptide 1955H Current Medications Medications (Trade) Dose Ordered Sig/Roselia Route PRN Reason Start Time Stop Time Status Last Admin Dose Admin Aspirin (ASA) 81 mg DAILY ORAL 08/09/16 10:00 09/08/16 09:59 08/11/16 09:17 Carvedilol (Coreg) 3.125 mg EVERY 12 HOURS ORAL 08/09/16 21:00 09/08/16 20:59 08/10/16 08:58 Dextrose (Dextrose 50%) STAT PRN IV Hypoglycemia 08/09/16 09:45 09/08/16 09:44 Furosemide (Lasix) 40 mg DAILY IV 08/11/16 09:00 09/10/16 08:59 Heparin Sodium (Porcine) (Heparin 5000 units/ml) 5,000 units EVERY 8 HOURS SUBQ 08/09/16 14:00 09/08/16 13:59 08/11/16 06:10 Lisinopril (Zestril) 2.5 mg DAILY ORAL 08/10/16 09:00 09/09/16 08:59 08/10/16 09:00 Potassium Chloride (K-Dur) 40 meq TWICE A DAY ORAL 08/09/16 18:00 09/08/16 17:59 08/10/16 17:17 Spironolactone (Aldactone) 25 mg DAILY ORAL 08/10/16 09:00 09/09/16 08:59 08/10/16 08:57 ELLI FUENTES Aug 11, 2016 12:49
--- NOTE | 2016-08-11 15:43 | Diagnostic Imaging Report ---
Indications: PAIN Technique: Two views of the thoracic spine Comparison: None Findings: Bones are osteoporotic. Vertebral body heights are preserved. The disc spaces are preserved. No acute fractures. No dislocations. No gross paraspinous mass. Pedicles are intact. There are some mild degenerative proliferative changes of the thoracolumbar junction Impression: Osteoporosis Mild degenerative changes No acute bony trauma
[2016-08-11 16:00] VITALS: BP 96/60
--- NOTE | 2016-08-11 16:24 | Diagnostic Imaging Report ---
Indications: Chest pain Technique: Single day single isotope protocol utilized. Initially, resting images obtained using IV administration 10.8 millicuries 99M technetium Myoview. Subsequently, patient underwent stress testing. See cardiology report for details. During adenosine infusion, IV administration 3.8 mCi 99 M technetium Myoview. SPECT and planar images obtained. SPECT images gated to 8 phases of the cardiac cycle were also obtained, and reformatted into cine images for evaluation of ejection fraction. Comparison: None Findings: Per cardiology report, patient experienced mild chest pain, which result. Per cardiology report, resting EKG demonstrates normal sinus rhythm, premature ventricular complexes, and left bundle branch block. No ST changes were noted during infusion. Imaging demonstrates post stress perfusion defect in the anteroseptal wall extending into the apex and slightly into the posterolateral wall which if anything is more prominent on the resting images. No definite reversible perfusion defects are demonstrated.. Calculated post stress ejection fraction 27%. There is evidence of global hypokinesis Impression: Equivocal clinical response to pharmacologic stress, per cardiology report Nonischemic electrocardiographic response to pharmacologic stress, per cardiology report Fixed anteroseptal, apical, and posterolateral perfusion defect, consistent with large infarct. No evidence of ischemia, at level of stress achieved Calculated post stress ejection fraction 27%
[2016-08-11 20:00] VITALS: BP 93/53
[2016-08-11] MEDS ORDERED: Norco 5mg/325mg tab ORAL PRN (20:00)
[2016-08-12 00:18] VITALS: BP 104/63
[2016-08-12 04:14] VITALS: BP 115/73
[2016-08-12] MEDS: Heparin 5000 units/ml inj SUBQ SCH ×3 (06:24→21:52)
[2016-08-12 07:35] LABS: BASOPHILS % (AUTO) 1.1 % (0.0-2.0); LYMPHOCYTES % (AUTO) 21.3 % (20.0-45.0); MEAN CORPUSCULAR HEMOGLOBIN 29.8 PG (27.0-31.0); MEAN CORPUSCULAR HGB CONC 33.9 G/DL (32.0-36.0); MEAN CORPUSCULAR VOLUME 88 FL (80-99); MEAN PLATELET VOLUME 6.7 FL (6.5-10.1); MONOCYTES % (AUTO) 9.4 % (1.0-10.0); NEUTROPHILS % (AUTO) 65.2 % (45.0-75.0); PLATELET COUNT 183 K/UL (150-450); RED BLOOD COUNT 4.51 M/UL (4.20-5.40); RED CELL DISTRIBUTION WIDTH 11.7 % (11.6-14.8); WHITE BLOOD COUNT 4.9 K/UL (4.8-10.8)
[2016-08-12 08:00] VITALS: BP 98/55
[2016-08-12 08:01] LABS: ANION GAP 16 (5-15); CARBON DIOXIDE 24 mEQ/L (20-30); CHLORIDE 100 mEQ/L (98-107); CREATININE 0.7 mg/dL (0.5-0.9); GLOMERULAR FILTRATION RATE > 60 mL/min (>60); HEMOLYSIS 24; POTASSIUM 4.8 mEQ/L (3.4-4.9); SODIUM 140 mEQ/L (135-145)
[2016-08-12] MEDS: Aspirin Baby 81mg ORAL SCH (09:10)
[2016-08-12] MEDS: Lisinopril 2.5mg tab ORAL SCH (09:11)
[2016-08-12] MEDS: Spironolactone 25mg tab ORAL SCH (09:11)
[2016-08-12 12:00] VITALS: BP 91/57
--- NOTE | 2016-08-12 12:07 | Pulmonology Progress Note ---
Assessment/Plan Problems: (1) CAD (coronary artery disease) (2) CHF exacerbation (3) Cardiomyopathy (4) Congestive heart failure (CHF) Assessment/Plan episodes of chest pain, EKG now, optimize cardiac meds f/u by cadio titrate fio2 to sat of 92%. stress study result reviewed. watch intake/out Subjective ROS Limited/Unobtainable: No Interval Events: comfortable Allergies: Coded Allergies: No Known Allergies (Unverified , 08/09/16) Objective Last 24 Hour Vital Signs Date Time Temp Pulse Resp B/P Pulse Ox O2 Delivery O2 Flow Rate FiO2 08/12/16 09:11 98/55 08/12/16 09:11 65 98/55 08/12/16 08:00 61 08/12/16 08:00 96.2 65 17 98/55 100 Room Air 08/12/16 04:14 98.2 71 18 115/73 96 Room Air 08/12/16 04:00 55 08/12/16 00:18 98.8 68 19 104/63 97 Room Air 08/12/16 00:00 63 08/11/16 20:58 74 93/53 08/11/16 20:00 76 08/11/16 20:00 96.4 74 21 93/53 96 Room Air 08/11/16 16:00 67 08/11/16 16:00 97.4 66 19 96/60 98 Room Air Intake and Output 08/11/16 08/12/16 19:00 07:00 Intake Total 300 ml Balance 300 ml Intake Oral 300 ml # Voids 1 1 Objective c.o chest pain General Appearance: WD/WN HEENT: normocephalic Respiratory/Chest: chest wall non-tender, normal breath sounds Cardiovascular: normal peripheral pulses, normal rate Abdomen: normal bowel sounds, soft, non tender Genitourinary: normal external genitalia Extremities: no clubbing Neurologic/Psychiatric: cash posting specialist II-XII grossly normal, no motor/sensory deficits Lymphatic: no neck adenopathy Laboratory Tests 08/12/16 06:50: White Blood Count 4.9, Red Blood Count 4.51, Hemoglobin 13.4, Hematocrit 39.6, Mean Corpuscular Volume 88, Mean Corpuscular Hemoglobin 29.8, Mean Corpuscular Hemoglobin Concent 33.9, Red Cell Distribution Width 11.7, Platelet Count 183, Mean Platelet Volume 6.7, Neutrophils (%) (Auto) 65.2, Lymphocytes (%) (Auto) 21.3, Monocytes (%) (Auto) 9.4, Eosinophils (%) (Auto) 3.0, Basophils (%) (Auto ) 1.1, Sodium Level 140, Potassium Level 4.8, Chloride Level 100, Carbon Dioxide Level 24, Anion Gap 16H, Blood Urea Nitrogen 18, Creatinine 0.7, Estimat Glomerular Filtration Rate > 60, Glucose Level 98, Calcium Level 9.0, Pro-B-Type Natriuretic Peptide 2553H Current Medications Medications (Trade) Dose Ordered Sig/Roselia Route PRN Reason Start Time Stop Time Status Last Admin Dose Admin Acetaminophen (Tylenol) 650 mg Q8H PRN ORAL Fever/Headache/Mild Pain 08/11/16 20:00 09/10/16 19:59 08/12/16 10:54 Acetaminophen/ Hydrocodone Bitart ([place] 5/325) 1 tab Q8H PRN ORAL Severe Pain (Pain Scale 7-10) 08/11/16 20:00 08/18/16 19:59 Aspirin (ASA) 81 mg DAILY ORAL 08/09/16 10:00 09/08/16 09:59 08/12/16 09:10 Carvedilol (Coreg) 3.125 mg EVERY 12 HOURS ORAL 08/09/16 21:00 09/08/16 20:59 08/12/16 09:11 Dextrose (Dextrose 50%) STAT PRN IV Hypoglycemia 08/09/16 09:45 09/08/16 09:44 Furosemide (Lasix) 40 mg DAILY IV 08/11/16 09:00 09/10/16 08:59 08/12/16 09:10 Heparin Sodium (Porcine) (Heparin 5000 units/ml) 5,000 units EVERY 8 HOURS SUBQ 08/09/16 14:00 09/08/16 13:59 08/12/16 06:24 Lisinopril (Zestril) 2.5 mg DAILY ORAL 08/10/16 09:00 09/09/16 08:59 08/12/16 09:11 Potassium Chloride (K-Dur) 40 meq TWICE A DAY ORAL 08/11/16 18:00 09/10/16 17:59 08/12/16 09:11 Spironolactone (Aldactone) 25 mg DAILY ORAL 08/10/16 09:00 09/09/16 08:59 08/12/16 09:11 ELLI FUENTES Aug 12, 2016 12:07
[2016-08-12 13:07] LABS: TROPONIN I < 0.30 ng/mL (<=0.30)
--- NOTE | 2016-08-12 15:18 | Cardiac Electrophysiology PN ---
Assessment/Plan Status Narrative Severe left ventricular enlargement. Severe global left ventricular hypokinesia. Left ventricular ejection fraction is estimated to be 10-15%. No evidence of ventricular hypertrophy. No evidence of pericardial fat or effusion. All other cardiac chamber sizes are within normal limits. Aortic valve calcification with decreased cusp excursion c/w aortic stenosis. Mildly thickened mitral valve leaflets with normal excursion. Mild mitral annulus and aortic root calcification. Pulmonic valve not well visualized. Normal tricuspid valve structure. IVC dilated at 2.1 cm with physiologic collapse. Nuclear stress test. Fixed anteroseptal, apical, and posterolateral perfusion defect, consistent with large infarct. No evidence of ischemia, at level of stress achieved Calculated post stress ejection fraction 27% Assessment/Plan 1. Congestive heart failure. Ejection fraction was 20% last month and still 10- 15% with BNP of more than 7000.Continue Coreg, lisinopril, Aldactone, and Lasix. Likely nonischemic cardiomyopathy. Life vest pending. Nuclear stress test large scar but no ischemia. Likely needs cardiac cath that can be done as out patient. If EF does not improve to more than 35% in 2 months, would need BIV ICD implant. 2. Complete left bundle-branch block. 3. Moderate MR DW Daughter and RN Subjective Subjective Feeling better.Nuclear stress test showed scar with no ischemia. Awaiting Life Vest placement.Family and RN at bedside. Objective Last 24 Hour Vital Signs Date Time Temp Pulse Resp B/P Pulse Ox O2 Delivery O2 Flow Rate FiO2 08/12/16 12:00 97.0 61 17 91/57 98 Room Air 08/12/16 12:00 55 08/12/16 09:11 98/55 08/12/16 09:11 65 98/55 08/12/16 08:00 61 08/12/16 08:00 96.2 65 17 98/55 100 Room Air 08/12/16 04:14 98.2 71 18 115/73 96 Room Air 08/12/16 04:00 55 08/12/16 00:18 98.8 68 19 104/63 97 Room Air 08/12/16 00:00 63 08/11/16 20:58 74 93/53 08/11/16 20:00 76 08/11/16 20:00 96.4 74 21 93/53 96 Room Air 08/11/16 16:00 67 08/11/16 16:00 97.4 66 19 96/60 98 Room Air Intake and Output 08/11/16 08/12/16 19:00 07:00 Intake Total 300 ml Balance 300 ml Intake Oral 300 ml # Voids 1 1 Laboratory Tests Test 08/12/16 06:50 08/12/16 12:25 White Blood Count 4.9 K/UL (4.8-10.8) Red Blood Count 4.51 M/UL (4.20-5.40) Hemoglobin 13.4 G/DL (12.0-16.0) Hematocrit 39.6 % (37.0-47.0) Mean Corpuscular Volume 88 FL (80-99) Mean Corpuscular Hemoglobin 29.8 PG (27.0-31.0) Mean Corpuscular Hemoglobin Concent 33.9 G/DL (32.0-36.0) Red Cell Distribution Width 11.7 % (11.6-14.8) Platelet Count 183 K/UL (150-450) Mean Platelet Volume 6.7 FL (6.5-10.1) Neutrophils (%) (Auto) 65.2 % (45.0-75.0) Lymphocytes (%) (Auto) 21.3 % (20.0-45.0) Monocytes (%) (Auto) 9.4 % (1.0-10.0) Eosinophils (%) (Auto) 3.0 % (0.0-3.0) Basophils (%) (Auto) 1.1 % (0.0-2.0) Sodium Level 140 mEQ/L (135-145) Potassium Level 4.8 mEQ/L (3.4-4.9) Chloride Level 100 mEQ/L (98-107) Carbon Dioxide Level 24 mEQ/L (20-30) Anion Gap 16 (5-15) H Blood Urea Nitrogen 18 mg/dL (7-23) Creatinine 0.7 mg/dL (0.5-0.9) Estimat Glomerular Filtration Rate > 60 mL/min (>60) Glucose Level 98 mg/dL (74-106) Calcium Level 9.0 mg/dL (8.6-10.2) Pro-B-Type Natriuretic Peptide 2553 pg/mL (0-125) H Troponin I < 0.30 ng/mL (<=0.30) Objective HEAD AND NECK: Mild JVD. LUNGS: Decreased breath sounds CARDIOVASCULAR: Shows regular S1 and S2 with S3 gallop. ABDOMEN: Soft. EXTREMITIES: No pitting edema. JOSE ALFREDO PERDOMO Aug 12, 2016 15:18
[2016-08-12 16:00] VITALS: BP 89/54
--- NOTE | 2016-08-12 16:35 | Internal Med Progress Note ---
Subjective Date of Service: Aug 12, 2016 Physician Name Isabelle Dhillon Attending Physician Zhen Pond MD Current Medications Medications (Trade) Dose Ordered Sig/Roselia Route PRN Reason Start Time Stop Time Status Last Admin Dose Admin Acetaminophen (Tylenol) 650 mg Q8H PRN ORAL Fever/Headache/Mild Pain 08/11/16 20:00 09/10/16 19:59 08/12/16 10:54 Acetaminophen/ Hydrocodone Bitart ([place] 5/325) 1 tab Q8H PRN ORAL Severe Pain (Pain Scale 7-10) 08/11/16 20:00 08/18/16 19:59 08/12/16 13:06 Aspirin (ASA) 81 mg DAILY ORAL 08/09/16 10:00 09/08/16 09:59 08/12/16 09:10 Carvedilol (Coreg) 3.125 mg EVERY 12 HOURS ORAL 08/09/16 21:00 09/08/16 20:59 08/12/16 09:11 Dextrose (Dextrose 50%) STAT PRN IV Hypoglycemia 08/09/16 09:45 09/08/16 09:44 Furosemide (Lasix) 40 mg DAILY ORAL 08/13/16 09:00 09/12/16 08:59 Heparin Sodium (Porcine) (Heparin 5000 units/ml) 5,000 units EVERY 8 HOURS SUBQ 08/09/16 14:00 09/08/16 13:59 08/12/16 13:04 Lisinopril (Zestril) 2.5 mg DAILY ORAL 08/10/16 09:00 09/09/16 08:59 08/12/16 09:11 Spironolactone (Aldactone) 25 mg DAILY ORAL 08/10/16 09:00 09/09/16 08:59 08/12/16 09:11 Allergies: Coded Allergies: No Known Allergies (Unverified , 08/09/16) ROS Limited/Unobtainable: No Constitutional: Reports: no symptoms HEENT: Reports: no symptoms Cardiovascular: Reports: no symptoms Respiratory: Reports: shortness of breath Gastrointestinal/Abdominal: Reports: no symptoms Genitourinary: Reports: no symptoms Neurologic/Psychiatric: Reports: other - fatigue Subjective 70 YO F admitted with shortness of breath. Now congestive heart failure. Await life vest. Cover for Int Med-Dr Salty. Objective Last Vital Signs Date Time Temp Pulse Resp B/P Pulse Ox O2 Delivery O2 Flow Rate FiO2 08/12/16 16:00 96.8 62 20 89/54 98 Nasal Cannula 2.0 Laboratory Tests Test 08/12/16 06:50 08/12/16 12:25 White Blood Count 4.9 K/UL (4.8-10.8) Red Blood Count 4.51 M/UL (4.20-5.40) Hemoglobin 13.4 G/DL (12.0-16.0) Hematocrit 39.6 % (37.0-47.0) Mean Corpuscular Volume 88 FL (80-99) Mean Corpuscular Hemoglobin 29.8 PG (27.0-31.0) Mean Corpuscular Hemoglobin Concent 33.9 G/DL (32.0-36.0) Red Cell Distribution Width 11.7 % (11.6-14.8) Platelet Count 183 K/UL (150-450) Mean Platelet Volume 6.7 FL (6.5-10.1) Neutrophils (%) (Auto) 65.2 % (45.0-75.0) Lymphocytes (%) (Auto) 21.3 % (20.0-45.0) Monocytes (%) (Auto) 9.4 % (1.0-10.0) Eosinophils (%) (Auto) 3.0 % (0.0-3.0) Basophils (%) (Auto) 1.1 % (0.0-2.0) Sodium Level 140 mEQ/L (135-145) Potassium Level 4.8 mEQ/L (3.4-4.9) Chloride Level 100 mEQ/L (98-107) Carbon Dioxide Level 24 mEQ/L (20-30) Anion Gap 16 (5-15) H Blood Urea Nitrogen 18 mg/dL (7-23) Creatinine 0.7 mg/dL (0.5-0.9) Estimat Glomerular Filtration Rate > 60 mL/min (>60) Glucose Level 98 mg/dL (74-106) Calcium Level 9.0 mg/dL (8.6-10.2) Pro-B-Type Natriuretic Peptide 2553 pg/mL (0-125) H Troponin I < 0.30 ng/mL (<=0.30) Intake and Output 08/11/16 08/12/16 19:00 07:00 Intake Total 300 ml Balance 300 ml Intake Oral 300 ml # Voids 1 1 Objective General Appearance: WD/WN, alert, mild distress EENT: PERRL/EOMI, normal ENT inspection, TMs normal Neck: non-tender, normal alignment, supple Cardiovascular: normal peripheral pulses, normal rate, regular rhythm, no gallop/murmur, no JVD Respiratory/Chest: chest wall non-tender, crackles/rales, rhonchi - bilaterally , expiratory wheezing Abdomen: normal bowel sounds, non tender, soft, no organomegaly, no mass Extremities: normal range of motion 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 May require AICD. S/P NM mocardial perfusion Cardiac stress test on 08/11/16-fixed anteroseptal apical & posterolateral perfusion defect C/W large infarct without ischemia. Await life vest until biventricular AICD can be implanted in 2 months if LVEF not improved. Follow cardiology recs. (2) Shortness of breath Assessment & Plan: Due to CHF. See cariology note. Cont IV lasix (3) Fatigue Assessment & Plan: Due to CHF Assessment/Plan Discharge planning: home with life vest when available. Will need cardiac cath as outpatient. ISABELLE DHILLON Aug 12, 2016 16:35
[2016-08-12 20:00] VITALS: BP 88/51
[2016-08-13 00:12] VITALS: BP 102/61
[2016-08-13 03:55] VITALS: BP 108/65
[2016-08-13 05:05] LABS: BASOPHILS % (AUTO) 1.3 % (0.0-2.0); EOSINOPHILS % (AUTO) 3.3 % (0.0-3.0); LYMPHOCYTES % (AUTO) 37.4 % (20.0-45.0); MEAN CORPUSCULAR HEMOGLOBIN 29.1 PG (27.0-31.0); MEAN CORPUSCULAR HGB CONC 32.5 G/DL (32.0-36.0); MEAN CORPUSCULAR VOLUME 90 FL (80-99); MEAN PLATELET VOLUME 6.5 FL (6.5-10.1); MONOCYTES % (AUTO) 8.7 % (1.0-10.0); NEUTROPHILS % (AUTO) 49.3 % (45.0-75.0); PLATELET COUNT 208 K/UL (150-450); RED BLOOD COUNT 4.65 M/UL (4.20-5.40); RED CELL DISTRIBUTION WIDTH 12.3 % (11.6-14.8); WHITE BLOOD COUNT 4.4 K/UL (4.8-10.8)
[2016-08-13] MEDS: Heparin 5000 units/ml inj SUBQ SCH ×2 (05:38→14:25)
[2016-08-13 05:42] LABS: CALCIUM 9.5 mg/dL (8.6-10.2)
[2016-08-13 08:00] VITALS: BP 102/52
[2016-08-13] MEDS: Lisinopril 2.5mg tab ORAL SCH (09:00)
[2016-08-13] MEDS ORDERED: Furosemide 40mg tab ORAL SCH (09:00)
[2016-08-13] MEDS: Aspirin Baby 81mg ORAL SCH (09:05)
[2016-08-13] MEDS: Spironolactone 25mg tab ORAL SCH (09:06)
[2016-08-13 12:11] VITALS: BP 113/46
--- NOTE | 2016-08-13 14:04 | Cardiac Electrophysiology PN ---
Assessment/Plan Status Narrative Severe left ventricular enlargement. Severe global left ventricular hypokinesia. Left ventricular ejection fraction is estimated to be 10-15%. No evidence of ventricular hypertrophy. No evidence of pericardial fat or effusion. All other cardiac chamber sizes are within normal limits. Aortic valve calcification with decreased cusp excursion c/w aortic stenosis. Mildly thickened mitral valve leaflets with normal excursion. Mild mitral annulus and aortic root calcification. Pulmonic valve not well visualized. Normal tricuspid valve structure. IVC dilated at 2.1 cm with physiologic collapse. Nuclear stress test. Fixed anteroseptal, apical, and posterolateral perfusion defect, consistent with large infarct. No evidence of ischemia, at level of stress achieved Calculated post stress ejection fraction 27% Assessment/Plan 1. Congestive heart failure. Ejection fraction was 20% last month and still 10- 15%. Continue Coreg, lisinopril, Aldactone, and Lasix. Life vest in place. Nuclear stress test large scar but no ischemia. Cardiac cath as out patient. If EF does not improve to more than 35% in 2 months, would change LifeVest to BIV ICD implant. 2. Complete left bundle-branch block. 3. Moderate MR DW Daughter and RN Subjective Subjective Feeling better.Nuclear stress test showed scar with no ischemia. Had Life Vest placement.Family at bedside.Awaiting discharge today. Objective Last 24 Hour Vital Signs Date Time Temp Pulse Resp B/P Pulse Ox O2 Delivery O2 Flow Rate FiO2 08/13/16 12:11 96.8 69 17 113/46 97 Room Air 69 08/13/16 12:00 64 08/13/16 09:00 102/52 08/13/16 09:00 78 102/52 08/13/16 08:00 97.2 78 17 102/52 98 Room Air 08/13/16 08:00 61 08/13/16 04:00 54 08/13/16 03:55 98.4 52 18 108/65 97 Nasal Cannula 2.0 08/13/16 00:12 98.2 55 19 102/61 95 Room Air 08/13/16 00:00 59 08/12/16 21:00 55 82/51 08/12/16 20:00 97.6 60 20 88/51 97 Nasal Cannula 2.0 08/12/16 20:00 59 08/12/16 16:00 68 08/12/16 16:00 96.8 62 20 89/54 98 Nasal Cannula 2.0 Intake and Output 08/12/16 08/13/16 19:00 07:00 Intake Total 650 ml 300 ml Balance 650 ml 300 ml Intake Oral 650 ml 300 ml # Voids 3 1 Laboratory Tests Test 08/13/16 03:15 White Blood Count 4.4 K/UL (4.8-10.8) L Red Blood Count 4.65 M/UL (4.20-5.40) Hemoglobin 13.5 G/DL (12.0-16.0) Hematocrit 41.7 % (37.0-47.0) Mean Corpuscular Volume 90 FL (80-99) Mean Corpuscular Hemoglobin 29.1 PG (27.0-31.0) Mean Corpuscular Hemoglobin Concent 32.5 G/DL (32.0-36.0) Red Cell Distribution Width 12.3 % (11.6-14.8) Platelet Count 208 K/UL (150-450) Mean Platelet Volume 6.5 FL (6.5-10.1) Neutrophils (%) (Auto) 49.3 % (45.0-75.0) Lymphocytes (%) (Auto) 37.4 % (20.0-45.0) Monocytes (%) (Auto) 8.7 % (1.0-10.0) Eosinophils (%) (Auto) 3.3 % (0.0-3.0) H Basophils (%) (Auto) 1.3 % (0.0-2.0) Sodium Level 137 mEQ/L (135-145) Potassium Level 5.0 mEQ/L (3.4-4.9) H Chloride Level 97 mEQ/L (98-107) L Carbon Dioxide Level 27 mEQ/L (20-30) Anion Gap 13 (5-15) Blood Urea Nitrogen 20 mg/dL (7-23) Creatinine 1.0 mg/dL (0.5-0.9) H Estimat Glomerular Filtration Rate 55.0 mL/min (>60) Glucose Level 100 mg/dL (74-106) Calcium Level 9.5 mg/dL (8.6-10.2) Pro-B-Type Natriuretic Peptide 1606 pg/mL (0-125) H Objective HEAD AND NECK: Mild JVD. LUNGS: Decreased breath sounds CARDIOVASCULAR: Regular S1 and S2 with S3 gallop. ABDOMEN: Soft. EXTREMITIES: No pitting edema. JOSE ALFREDO PERDOMO Aug 13, 2016 14:04
--- NOTE | 2016-08-13 14:54 | Pulmonology Progress Note ---
Assessment/Plan Problems: (1) CAD (coronary artery disease) (2) CHF exacerbation (3) Cardiomyopathy (4) Congestive heart failure (CHF) Assessment/Plan episodes of chest pain, EKG now, optimize cardiac meds f/u by cadio titrate fio2 to sat of 92%. stress study result reviewed. dc home when OK with right of way manager Subjective ROS Limited/Unobtainable: No Interval Events: comfortable Allergies: Coded Allergies: No Known Allergies (Unverified , 08/09/16) Objective Last 24 Hour Vital Signs Date Time Temp Pulse Resp B/P Pulse Ox O2 Delivery O2 Flow Rate FiO2 08/13/16 12:11 96.8 69 17 113/46 97 Room Air 69 08/13/16 12:00 64 08/13/16 09:00 102/52 08/13/16 09:00 78 102/52 08/13/16 08:00 97.2 78 17 102/52 98 Room Air 08/13/16 08:00 61 08/13/16 04:00 54 08/13/16 03:55 98.4 52 18 108/65 97 Nasal Cannula 2.0 08/13/16 00:12 98.2 55 19 102/61 95 Room Air 08/13/16 00:00 59 08/12/16 21:00 55 82/51 08/12/16 20:00 97.6 60 20 88/51 97 Nasal Cannula 2.0 08/12/16 20:00 59 08/12/16 16:00 68 08/12/16 16:00 96.8 62 20 89/54 98 Nasal Cannula 2.0 Intake and Output 08/12/16 08/13/16 19:00 07:00 Intake Total 650 ml 300 ml Balance 650 ml 300 ml Intake Oral 650 ml 300 ml # Voids 3 1 General Appearance: WD/WN HEENT: normocephalic Respiratory/Chest: lungs clear Breasts: no masses Cardiovascular: normal peripheral pulses Abdomen: normal bowel sounds Genitourinary: normal external genitalia Extremities: no cyanosis, no clubbing Skin: no rash Neurologic/Psychiatric: graduate nurse II-XII grossly normal Lymphatic: no neck adenopathy Laboratory Tests 08/13/16 03:15: White Blood Count 4.4L, Red Blood Count 4.65, Hemoglobin 13.5, Hematocrit 41.7, Mean Corpuscular Volume 90, Mean Corpuscular Hemoglobin 29.1, Mean Corpuscular Hemoglobin Concent 32.5, Red Cell Distribution Width 12.3, Platelet Count 208, Mean Platelet Volume 6.5, Neutrophils (%) (Auto) 49.3, Lymphocytes (%) (Auto) 37.4, Monocytes (%) (Auto) 8.7, Eosinophils (%) (Auto) 3.3H, Basophils (%) (Auto ) 1.3, Sodium Level 137, Potassium Level 5.0H, Chloride Level 97L, Carbon Dioxide Level 27, Anion Gap 13, Blood Urea Nitrogen 20, Creatinine 1.0H, Estimat Glomerular Filtration Rate 55.0, Glucose Level 100, Calcium Level 9.5, Pro-B-Type Natriuretic Peptide 1606H Current Medications Medications (Trade) Dose Ordered Sig/Roselia Route PRN Reason Start Time Stop Time Status Last Admin Dose Admin Acetaminophen (Tylenol) 650 mg Q8H PRN ORAL Fever/Headache/Mild Pain 08/11/16 20:00 09/10/16 19:59 08/12/16 10:54 Acetaminophen/ Hydrocodone Bitart ([place] 5/325) 1 tab Q8H PRN ORAL Severe Pain (Pain Scale 7-10) 08/11/16 20:00 08/18/16 19:59 08/12/16 13:06 Aspirin (ASA) 81 mg DAILY ORAL 08/09/16 10:00 09/08/16 09:59 08/13/16 09:05 Carvedilol (Coreg) 3.125 mg EVERY 12 HOURS ORAL 08/09/16 21:00 09/08/16 20:59 08/12/16 09:11 Dextrose (Dextrose 50%) STAT PRN IV Hypoglycemia 08/09/16 09:45 09/08/16 09:44 Furosemide (Lasix) 40 mg DAILY ORAL 08/13/16 09:00 09/12/16 08:59 08/13/16 09:06 Heparin Sodium (Porcine) (Heparin 5000 units/ml) 5,000 units EVERY 8 HOURS SUBQ 08/09/16 14:00 09/08/16 13:59 08/13/16 14:25 Lisinopril (Zestril) 2.5 mg DAILY ORAL 08/10/16 09:00 09/09/16 08:59 08/12/16 09:11 Spironolactone (Aldactone) 25 mg DAILY ORAL 08/10/16 09:00 09/09/16 08:59 08/13/16 09:06 ELLI FUENTES Aug 13, 2016 14:54
[2016-08-13] MEDS ORDERED: FUROSEMIDE40 MG ORAL (15:07)
[2016-08-13] MEDS ORDERED: LISINOPRIL5 MG ORAL (15:07)
[2016-08-13] MEDS ORDERED: COREG3.125 MG ORAL (15:07)
[2016-08-13] MEDS ORDERED: ALDACTONE25 MG ORAL (15:07)
--- NOTE | 2016-08-13 15:10 | Internal Med Progress Note ---
Subjective Date of Service: Aug 13, 2016 Physician Name Kevin Dhillon Attending Physician Zhen Pond MD Current Medications Medications (Trade) Dose Ordered Sig/Roselia Route PRN Reason Start Time Stop Time Status Last Admin Dose Admin Acetaminophen (Tylenol) 650 mg Q8H PRN ORAL Fever/Headache/Mild Pain 08/11/16 20:00 09/10/16 19:59 08/12/16 10:54 Acetaminophen/ Hydrocodone Bitart ([place] 5/325) 1 tab Q8H PRN ORAL Severe Pain (Pain Scale 7-10) 08/11/16 20:00 08/18/16 19:59 08/12/16 13:06 Aspirin (ASA) 81 mg DAILY ORAL 08/09/16 10:00 09/08/16 09:59 08/13/16 09:05 Carvedilol (Coreg) 3.125 mg EVERY 12 HOURS ORAL 08/09/16 21:00 09/08/16 20:59 08/12/16 09:11 Dextrose (Dextrose 50%) STAT PRN IV Hypoglycemia 08/09/16 09:45 09/08/16 09:44 Furosemide (Lasix) 40 mg DAILY ORAL 08/13/16 09:00 09/12/16 08:59 08/13/16 09:06 Heparin Sodium (Porcine) (Heparin 5000 units/ml) 5,000 units EVERY 8 HOURS SUBQ 08/09/16 14:00 09/08/16 13:59 08/13/16 14:25 Lisinopril (Zestril) 2.5 mg DAILY ORAL 08/10/16 09:00 09/09/16 08:59 08/12/16 09:11 Spironolactone (Aldactone) 25 mg DAILY ORAL 08/10/16 09:00 09/09/16 08:59 08/13/16 09:06 Allergies: Coded Allergies: No Known Allergies (Unverified , 08/09/16) ROS Limited/Unobtainable: No Constitutional: Reports: no symptoms HEENT: Reports: no symptoms Cardiovascular: Reports: no symptoms Respiratory: Reports: no symptoms Gastrointestinal/Abdominal: Reports: no symptoms Genitourinary: Reports: no symptoms Neurologic/Psychiatric: Reports: no symptoms Subjective 70 YO F admitted with shortness of breath. Now congestive heart failure. Cover for Int Med-Dr Pond. Objective Last Vital Signs Date Time Temp Pulse Resp B/P Pulse Ox O2 Delivery O2 Flow Rate FiO2 08/13/16 12:11 96.8 69 17 113/46 97 Room Air 69 08/13/16 03:55 2.0 Laboratory Tests Test 08/13/16 03:15 White Blood Count 4.4 K/UL (4.8-10.8) L Red Blood Count 4.65 M/UL (4.20-5.40) Hemoglobin 13.5 G/DL (12.0-16.0) Hematocrit 41.7 % (37.0-47.0) Mean Corpuscular Volume 90 FL (80-99) Mean Corpuscular Hemoglobin 29.1 PG (27.0-31.0) Mean Corpuscular Hemoglobin Concent 32.5 G/DL (32.0-36.0) Red Cell Distribution Width 12.3 % (11.6-14.8) Platelet Count 208 K/UL (150-450) Mean Platelet Volume 6.5 FL (6.5-10.1) Neutrophils (%) (Auto) 49.3 % (45.0-75.0) Lymphocytes (%) (Auto) 37.4 % (20.0-45.0) Monocytes (%) (Auto) 8.7 % (1.0-10.0) Eosinophils (%) (Auto) 3.3 % (0.0-3.0) H Basophils (%) (Auto) 1.3 % (0.0-2.0) Sodium Level 137 mEQ/L (135-145) Potassium Level 5.0 mEQ/L (3.4-4.9) H Chloride Level 97 mEQ/L (98-107) L Carbon Dioxide Level 27 mEQ/L (20-30) Anion Gap 13 (5-15) Blood Urea Nitrogen 20 mg/dL (7-23) Creatinine 1.0 mg/dL (0.5-0.9) H Estimat Glomerular Filtration Rate 55.0 mL/min (>60) Glucose Level 100 mg/dL (74-106) Calcium Level 9.5 mg/dL (8.6-10.2) Pro-B-Type Natriuretic Peptide 1606 pg/mL (0-125) H Intake and Output 08/12/16 08/13/16 19:00 07:00 Intake Total 650 ml 300 ml Balance 650 ml 300 ml Intake Oral 650 ml 300 ml # Voids 3 1 Objective General Appearance: WD/WN, alert, mild distress EENT: PERRL/EOMI, normal ENT inspection, TMs normal Neck: non-tender, normal alignment, supple Cardiovascular: normal peripheral pulses, normal rate, regular rhythm, no gallop/murmur, no JVD Respiratory/Chest: chest wall non-tender, crackles/rales, rhonchi - bilaterally , expiratory wheezing Abdomen: normal bowel sounds, non tender, soft, no organomegaly, no mass Extremities: normal range of motion 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 May require AICD. S/P NM mocardial perfusion Cardiac stress test on 08/11/16-fixed anteroseptal apical & posterolateral perfusion defect C/W large infarct without ischemia. Life vest until biventricular AICD can be implanted in 2 months if LVEF not improved. Follow cardiology recs. (2) Shortness of breath Assessment & Plan: Due to CHF. See cariology note. Cont IV lasix (3) Fatigue Assessment & Plan: Due to CHF Assessment/Plan Discharge home today with life vest. Will need cardiac cath as outpatient. KEVIN DHILLON Aug 13, 2016 15:10
--- NOTE | 2016-08-13 16:50 | Physician Query ---
PLEASE COMPLETE THE DOCUMENT BEFORE SIGNING Dear Dr. Gordon Date: _08/13/2016 [employer] Manager/CDS Name: _Rene Yen MD___ [employer] Manager / CDS Phone #__[phone] Exercise your independent professional judgment when responding to query. Question asked do not imply a particular answer is desired/expected Clinical Documentation States: "CHF" documented in Dr. Tuttle's Progress Notes Clinical Findings Show: "LVEF 10-15%. May require AICD. S/P NM mocardial perfusion Cardiac stress test on 08/11/16-fixed anteroseptal apical & posterolateral perfusion defect C/ W large infarct without ischemia. Life vest until biventricular AICD can be implanted in 2 months if LVEF not improved." as per Dr. Tuttle's Progress Notes Please Clarify: Acuity [] Acute [] Chronic [X] Acute on Chronic Type [X] Systolic [] Diastolic [] Systolic & Diastolic (Combined) [] Left Heart failure [] Other: Etiology [] CHF due to Hypertension [X] Cardiomyopathy [] Valvular Heart Disease [] Coronary Artery Disease [] Unable to determine [] Other: Condition Present on Admission: [X] Yes [] No []Clinically Undeterminable Please also document in your Progress Notes and/or Discharge Summary and indicate if the condition was present on admission. Kevin Tuttle MD Date & Time MTDD
--- NOTE | 2016-08-13 18:32 | Cardiology Report ---
APPROVED REPORT EKG Measurement Heart [id number] Sinus bradycardia Left bundle branch block Abnormal ECG
--- NOTE | 2016-08-16 09:44 | Discharge Summary ---
Discharge Summary Hospital Course Date of Admission Aug 09, 2016 at 05:39 Date of Discharge Aug 13, 2016 at 15:45 Admitting Diagnosis HPI Kim Rankin is a 70 year old female who was admitted on Aug 09, 2016 at 05:39 for Congestive Heart Failure Exacerbation Hospital Course dc summary #[id number] Discharge Medications New Medications: Carvedilol (Coreg) 3.125 Mg Tablet 3.125 MG ORAL EVERY 12 HOURS for 30 Days, TAB Furosemide* (Lasix*) 40 Mg Tablet 40 MG ORAL DAILY for 30 Days, TAB Lisinopril (Lisinopril*) 5 Mg Tablet 2.5 MG ORAL DAILY for 30 Days, TAB Spironolactone (Aldactone) 25 Mg Tablet 25 MG ORAL DAILY for 30 Days, TAB Continued Medications: Aspirin* (Aspir 81*) 81 Mg Tablet.dr 81 MG ORAL DAILY, TAB Discontinued Medications: Enalapril Maleate* (Enalapril Maleate*) 5 Mg Tablet 5 MG ORAL DAILY, TAB Discharge Condition Upon Discharge: stable Discharge Disposition Patient was discharged to Home (01) Discharge Diagnoses: Discharge Instructions Discharge Instructions Special Instructions I have been assigned to complete a D/C Summary on this account. I was not involved in the patient management Alana Wu NP ([place]te[place]) Aug 16, 2016 09:44
--- NOTE | 2016-08-17 01:38 | Discharge Summary 2 SIG ---
DATE OF ADMISSION: 08/09/2016 DATE OF DISCHARGE: 08/13/2016 REASON FOR ADMISSION: 70-year-old female was transferred from [facility] to [facility] for further management after she presented to [place] ER with fatigue and chest pain. Workup in [place] revealed negative troponin, pro BNP was over 7000. According to the patient, she was diagnosed with congestive heart failure in [facility] in April 2016 and was told that her ejection fraction was 23%. Since returning to [facility], she never followed up with the transmission builder. She reported having dry cough since April, was seen by her primary care provider. One day prior to arrival to the emergency room in [place], the patient developed left-sided chest pain, not radiating as well as fatigue and difficulties with walking. ADMITTING DIAGNOSES: 1. Shortness of breath. 2. Fatigue. 3. Acute congestive heart failure. HOSPITAL STAY: The patient was admitted to telemetry floor. Cardiology and Pulmonology consults were requested. The patient had undergone echocardiogram, which revealed ejection fraction of 10% to 15%. No evidence of ventricular hypertrophy, no evidence of pericardial effusion. Right ventricular systolic pressure of 44 consistent with mild pulmonary hypertension, [id number] tricuspid regurgitation, and moderate mitral regurgitation. Subsequently, EKG revealed complete left bundle-branch block. The patient was placed on medical management for systolic heart failure including beta-london, NATE inhibitor, and diuretics such as Aldactone and Lasix. Stress test was subsequently done, which revealed large fixed anteroseptal, apical, and posterolateral perfusion defect, consistent with a large infarct. No evidence of ischemia at level of stress was achieved. Calculated post stress ejection fraction was 27%. LifeVest was delivered to the patient. B[employer]ies[employer] Technology Manager explained to the patient and her daughter that Echo needs to be repeated in two months and if ejection fraction will not rise to 35% with medical management, the patient will need placement of automatic implantable cardioverter-defibrillator. Supplemental oxygen and pulmonary toilet were provided as needed. Pulse oximetry was stable on room air as the patient's clinical condition improved. Chest x-ray showed cardiomegaly, but no acute process. The patient was stable for discharge and close follow up with the primary medical doctor and transmission builder. DISCHARGE DIAGNOSES: 1. Acute on chronic systolic congestive heart failure, present on admission. 2. Cardiomegaly. 3. Mild pulmonary hypertension. 4. Moderate mitral regurgitation. 5. Complete left bundle-branch block. 6. History of large myocardial infarction. DISCHARGE MEDICATIONS: See medication reconciliation list. DISCHARGE INSTRUCTIONS: The patient was discharged home. Follow up with the primary medical doctor and transmission builder. Repeat echo in two months. If ejection fraction not improved to 35%, the patient will need placement of automatic implantable defibrillator. Reinforced compliance with medication regimen. Zhen Pond M.D. I have been assigned to dictate discharge summary on this account and I was not involved in the patient's management. Alana LynnStaten Island University Hospitalalicia N.PAyaka DR: Jae JOB#: [id number] CC: TAMIE
== END 2016-08-13 15:45 | disposition home or self-care (01) | DRG 292 ==
LOC: 2E 05:39
DX: I50.23 Acute on chronic systolic (congestive) heart failure (principal); I42.9 Cardiomyopathy, unspecified; I27.2 Other secondary pulmonary hypertension; I44.7 Left bundle-branch block, unspecified; I34.0 Nonrheumatic mitral (valve) insufficiency; I25.2 Old myocardial infarction; I10 Essential (primary) hypertension; I25.10 Atherosclerotic heart disease of native coronary artery without angina pectoris
CPT/HCPCS: 36415; 71010; 72070; 78452; 80048; 80053; 80061; 83735; 83880; 84100; 84484; 85025; 93005; 93017; 93306; J8499

== ENCOUNTER 2019-07-30 11:25 | Outpatient (CLI) | payer MEDICARE, OTHER ==
[~2019-07-30] VITALS: Ht 162.6 cm; Wt 124.7 kg
[~2019-07-30 11:25] MED LIST: ALDACTONE25 MG ORAL; ASPIR 8181 MG ORAL; COREG3.125 MG ORAL; ENALAPRIL MALEAT5 MG ORAL; FUROSEMIDE40 MG ORAL; LISINOPRIL5 MG ORAL
--- NOTE | 2019-07-30 16:00 | Consultation ---
DATE OF CONSULTATION: 07/30/2019 CONSULTING PHYSICIAN: Bob Sue M.D. CHIEF COMPLAINT: Chronic GERD symptoms. HISTORY OF PRESENT ILLNESS: This is a very pleasant 73-year-old female with no prior history of endoscopy, questionable colonoscopy, she is not sure. She came to the hospital complaining of severe acid reflux disease. The patient denies any hematochezia. Denies any melena. Denies any change in bowel habits. No significant weight loss. PAST MEDICAL HISTORY: 1. Hypercholesteremia. 2. Hypertension. PAST SURGICAL HISTORY: Pacemaker placement and right wrist surgery. MEDICATIONS: Simvastatin, Lasix, Aldactone, lisinopril, carvedilol. FAMILY HISTORY: No family history of GI malignancy. SOCIAL HISTORY: The patient denies any tobacco, alcohol, or drug use. ALLERGIES: No known allergies. REVIEW OF SYSTEMS: A 10-point review of systems was performed and pertinent positives in HPI. PHYSICAL EXAMINATION: GENERAL: A well-developed female, in no acute distress. HEENT: Normocephalic and atraumatic. Sclerae anicteric. NECK: Supple. No evidence of obvious lymphadenopathy. CARDIOVASCULAR: Regular rate and rhythm. Plus S1-S2. LUNGS: Decreased breath sounds bilaterally based on the supine exam. ABDOMEN: Soft, nontender. No rebound. No guarding. No peritoneal sign. EXTREMITIES: No cyanosis. No clubbing. No edema. ASSESSMENT AND PLAN: This is a 73-year-old female with chronic GERD symptoms. No prior history of endoscopy and colonoscopy. The patient needs endoscopy for evaluation of chronic GERD and colonoscopy for screening. Plan to do this coming Tuesday. The patient was given instruction for the prep. The risks and benefits of procedure were explained to her. I want to thank Dr. Zhen Pond for this kind referral. Bob Sue M.D. DR: VERONICA JOB#: [id number] CC: Zhen Pond M.D.; Fax#: [phone]
== END 2019-07-30 16:23 | disposition home or self-care (01) ==
LOC: PAN 11:25
DX: K21.9 Gastro-esophageal reflux disease without esophagitis (principal); E78.00 Pure hypercholesterolemia, unspecified; I10 Essential (primary) hypertension; Z79.899 Other long term (current) drug therapy
CPT/HCPCS: G0463

== ENCOUNTER 2019-08-01 08:34 | Day surgery (SDC) | payer MEDICARE, OTHER ==
[~2019-08-01] VITALS: Ht 160 cm; Wt 68.0 kg
[2019-08-01] VITALS (7 sets, daily range): BP systolic 105–121; BP diastolic 51–74
[~2019-08-01 08:34] MED LIST changes: +LR 1000ml 1,000 ML IVLG SCH
--- NOTE | 2019-08-01 08:40 | Pre-Procedure Note/Attestation ---
Pre-Procedure Note/Attestation Complete Prior to Procedure Planned Procedure: not applicable Procedure Narrative: esophagogastroduodenoscopy and colonoscopy Indications for Procedure Pre-Operative Diagnosis: screening colon, GERD Attestation I attest that I discussed the nature of the procedure; its benefits; risks and complications; and alternatives (and the risks and benefits of such alternatives ), prior to the procedure, with the patient (or the patient's legal lifeline representatives). I attest that, if there was a reasonable possibility of needing a blood transfusion, the patient (or the patient's legal lifeline representatives) was given the [facility] standardized written summary, pursuant to the [place] Blood Safety Act ([place] Health and Safety Code # 1645, as amended). I attest that I re-evaluated the patient just prior to the surgery and that there has been no change in the patient's H&P, except as documented below: Bob Sue MD Aug 01, 2019 08:40
--- NOTE | 2019-08-01 08:41 | Short Stay Surgery H&P ---
History of Present Illness History of Present Illness Chief Complaint see recent office note HPI Kim Rankin is a 73 year old female who was admitted on for Gerd And Screening Patient History Allergies: Coded Allergies: No Known Allergies (Unverified , 08/09/16) Medication History Scheduled Aspirin* (Aspir 81*), 81 MG ORAL DAILY, (Reported) Carvedilol (Coreg), 3.125 MG ORAL EVERY 12 HOURS Furosemide* (Lasix*), 40 MG ORAL DAILY Lisinopril (Lisinopril*), 2.5 MG ORAL DAILY Spironolactone (Aldactone), 25 MG ORAL DAILY Plan Attestation Are the patient's medical conditions optimized for surgery? Bob Sue MD Aug 01, 2019 08:41
[2019-08-01] MEDS ORDERED: fentaNYL 100 mcg/2 mL IV ONE (10:30)
[2019-08-01] MEDS ORDERED: LR 1000ml ONE (10:30)
[2019-08-01] MEDS ORDERED: Propofol 200mg/20ml IV ONE (10:30)
--- NOTE | 2019-08-01 10:52 | Anethesia Preoperative Eval ---
Anesthesia Pre-op PMH/ROS General Date of Evaluation: Aug 01, 2019 Time of Evaluation: 10:45 Anesthesiologist: Herve ASA Score: ASA 3 Mallampati Score Class I : Soft palate, uvula, fauces, pillars visible Class II: Soft palate, uvula, fauces visible Class III: Soft palate, base of uvula visible Class IV: Only hard plate visible Mallampati Classification: Class II Surgeon: Linette Diagnosis: GERD Surgical Procedure: EGD Colonoscopy Anesthesia History: none Family History: no anesthesia problems Allergies: Coded Allergies: No Known Allergies (Unverified , 08/09/16) Medications: see eMAR Patient NPO?: Yes Past Medical History Cardiovascular: Reports: HTN, arrhythmia, other - CHF; Denies: CAD, AL, valve dz Pulmonary: Denies: asthma, COPD, SOLO, other Gastrointestinal/Genitourinary: Reports: GERD; Denies: CRI, ESRD, other Neurologic/Psychiatric: Denies: dementia, CVA, depression/anxiety, TIA, other Endocrine: Denies: DM, hypothyroidism, steroids, other HEENT: Reports: cataract (L), cataract (R) - s/p SX Hematology/Immune: Denies: anemia, DVT, bleeding disorder, other Musculoskeletal/Integumentary: Reports: OA; Denies: RA, DJD, DDD, edema, other PMH Narrative: as above PSxH Narrative: BTL Bilateral cataracts, pacemaker placement Anesthesia Pre-op Phys. Exam Physician Exam Last Vital Signs Date Time Temp Pulse Resp B/P (MAP) Pulse Ox O2 Delivery O2 Flow Rate FiO2 08/01/19 10:00 Room Air 08/01/19 09:57 97.8 68 18 121/74 100 Constitutional: NAD Neurologic: CN 2-12 intact Cardiovascular: RRR, no M/R/G Respiratory: CTA Gastrointestinal: S/NT/ND Airway Exam Mallampati Score: Class II MO: limited Neck: stiff ROM: limited Teeth: missing Dentures: no upper, no lower Anesthesia Pre-op A/P Labs see chart Studies Pre-op Studies: EKG - OK Risk Assessment & Plan Assessment: ASA 3 Plan: MAC Status Change Before Surgery: No Rufus Edgar MD Aug 01, 2019 10:52
--- NOTE | 2019-08-01 11:07 | Endoscopy Procedure Note ---
Endoscopy Procedure Note General Indication for Procedure: screening colon, GERD Procedures Performed: EGD, colonoscopy Operative Findings/Diagnosis: gastritis, one polyp Specimen: yes Pt Tolerated Procedure Well: Yes Estimated Blood Loss: none Anesthesia Anesthesiologist: lu Anesthesia: MAC Inserted Devices Implant(s) used?: No Quality Quality of Bowel Preparation: Good Did scope reach the cecum?: Yes Was there any complications?: No GI Core Measures 50 yrs or older w/o bx or poly: No 10yrs. F/U recommended: Yes If not recommended, why?: Above average risk 18 years or older w/prev. colo: No Bob Sue MD Aug 01, 2019 11:07
--- NOTE | 2019-08-01 11:18 | Immediate Post-Op Evaluation ---
Immediate Post-Op Evalulation Immediate Post-Op Evalulation Procedure: EGD Colonoscopy Date of Evaluation: Aug 01, 2019 Time of Evaluation: 11:17 IV Fluids: 400 Blood Products: none Estimated Blood Loss: none Urinary Output: none Blood Pressure Systolic: 112 Blood Pressure Diastolic: 58 Pulse Rate: 62 Respiratory Rate: 20 O2 Sat by Pulse Oximetry: 99 Temperature (Fahrenheit): 97.7 Pain Score (1-10): 1 Nausea: No Vomiting: No Complications none Patient Status: awake, patent, none Hydration Status: adequate Rufus Edgar MD Aug 01, 2019 11:18
--- NOTE | 2019-08-01 11:21 | 48 Hour Post Anesthesia Eval ---
Post Anesthesia Evaluation Procedure: EGD Colonoscopy Date of Evaluation: Aug 01, 2019 Time of Evaluation: 11:20 Blood Pressure Systolic: 112 0: 57 Pulse Rate: 60 Respiratory Rate: 18 Temperature (Fahrenheit): 97.6 O2 Sat by Pulse Oximetry: 99 Airway: patent Nausea: No Vomiting: No Pain Intensity: 1 Hydration Status: adequate Cardiopulmonary Status: stable Mental Status/LOC: patient returned to baseline Follow-up Care/Observations: n/a Post-Anesthesia Complications: none Follow-up care needed: ready to discharge Rufus Edgar MD Aug 01, 2019 11:21
--- NOTE | 2019-08-01 16:30 | Procedure Note ---
DATE OF PROCEDURE: 08/01/2019 SURGEON: Bob Sue M.D. PROCEDURE: Upper endoscopy with biopsy and colonoscopy with biopsy. ANESTHESIA: Per Dr. Edgar. INSTRUMENT: Olympus adult flexible upper endoscope and colonoscope. INDICATION: Screening colonoscopy evaluation, chronic GERD. REASON FOR PROCEDURE: The procedure, risks, benefits, and possible consequences, including hemorrhage, aspiration, perforation and infection, and alternative treatments, were explained to the patient/legal guardian by Dr. Bob Sue and the patient/legal guardian understood and accepted these risks. DESCRIPTION OF PROCEDURE: After informed consent was obtained and the patient was adequately sedated, Olympus upper endoscope was advanced from the mouth into the second portion of the duodenum and retroflexion was performed in the stomach. The patient had evidence of diffuse gastritis. Random biopsy from antrum was obtained to rule out H. pylori infection. The patient also had evidence of irregular Z-line. No evidence of any significant esophagitis. No esophageal mass. At this time, the upper endoscope was retrieved. The patient was turned over for colonoscopy. First, rectal exam was performed, which was positive for internal hemorrhoids. Then the scope was advanced from the rectum into the cecum and then subsequently to terminal ileum. Quality of prep was excellent. The patient had one diminutive polyp in the rectosigmoid area, which was removed with cold biopsy forceps technique. Otherwise, the rest of the colonoscopy examination was grossly within normal limits. Retroflexion of rectum showed evidence of internal hemorrhoids. SUMMARY OF FINDINGS: 1. Irregular Z-line. 2. Gastritis, status post biopsy. 3. One colonic polyp removed. See above for details. 4. Internal hemorrhoids. RECOMMENDATIONS: 1. Follow up biopsy results and treat accordingly. 2. We recommend repeat colonoscopy in 5 years. I want to thank Dr. Zhen Pond for this kind referral. Bob Sue M.D. DR: VERONICA JOB#: [id number] CC: Zhen Pond M.D.; Fax#: [phone]
== END 2019-08-01 12:30 | disposition home or self-care (01) ==
LOC: GAS 08:34
DX: Z12.11 Encounter for screening for malignant neoplasm of colon (principal); K21.9 Gastro-esophageal reflux disease without esophagitis; K64.8 Other hemorrhoids; K63.5 Polyp of colon; K29.70 Gastritis, unspecified, without bleeding; Z79.82 Long term (current) use of aspirin; I11.0 Hypertensive heart disease with heart failure; I50.9 Heart failure, unspecified; M19.90 Unspecified osteoarthritis, unspecified site; Z95.0 Presence of cardiac pacemaker
CPT/HCPCS: 43239; 45380; J2704; J3010; J7120; 94003; 94150